=== PATIENT | male | born 1945 | race Caucasian/White ===

== ENCOUNTER 2017-08-12 15:59 | Inpatient (IN) ==
[2017-08-12] MEDS ORDERED: NS 1,000 ML IV ONE ×3 (16:10→17:51)
[2017-08-12 17:18] LABS: BASO% 0.1 % (0.0-0.8); EOS# 0.02 X1000 (0.0-0.7); EOS% 0.1 % (0.0-10.0); HEMATOCRIT 40.3 % (42.0-52.0); HEMOGLOBIN 13.7 g/dL (14.0-18.0); IMM GRAN% 0.6 % (0.0-0.5); LYMPH% 5.6 % (20.5-51.1); MANUAL DIFF NEEDED? NO; MCV 82.2 FL (81-99); MONO# 1.07 X1000 (0.11-0.59); MONO% 6.7 % (1.7-9.3); MPV 11.1 FL (7.4-10.4); NEUT% 86.9 % (42.2-75.2); PLT 239 X1000 (130-400)
--- NOTE | 2017-08-12 17:18 | Diag Imaging Result Doc PS360 ---
EXAM: CHEST-PORTABLE HISTORY: fever, poss sepsis TECHNIQUE: Portable upright COMPARISON: None. FINDINGS: Sternal wires are present. The lungs are well expanded. The heart is not enlarged. The vessels are not distended. No pneumonia. No pleural effusions identified. IMPRESSION: Negative chest Electronically signed by Yan Moreno 08/12/2017 5:16 PM
[2017-08-12] MEDS ORDERED: ZOSYN 3.375 GM in NS 50 ML IV ONE (17:19)
[2017-08-12] MEDS ORDERED: VANCOMYCIN 1 GM/NS 1 GM/250 ML IVPB IV ONE ×2 (17:19→21:00)
[2017-08-12] MEDS ORDERED: DILAUDID IV ONE (17:21)
[2017-08-12] MEDS ORDERED: ZOFRAN IV ONE (17:21)
[2017-08-12 17:22] LABS: INR 1.34; PROTIME 14.3 Seconds (9.2-11.7); PTT 28.6 Seconds (22.0-36.0)
--- NOTE | 2017-08-12 17:33 | PROVIDER DOCUMENTATION ---
This chart was entered by Tam Cleveland Scribe, acting as scribe for Prudencio Lombardi MD. HPI-Fever - General Chief Complaint: Possible Sepsis-D Stated Complaint: POSSIBLE SEPSIS Time Seen by Provider: 08/12/17 15:59 Source: patient Allergies/Adverse Reactions: Patient Allergies Allergy/AdvReac Type Severity Reaction Status Date / Time No Known Allergies Allergy Verified 08/12/17 16:50 - History of Present Illness-Fever Nature of Presenting Problem: patient is a 72 y/o M that presents from home via EMS for possible sepsis. patient has a Decub ulcer to posterior side. He also has lemus cath. he reports a few days of poor appetite, weakness, and body aches. denies n/v/d, chest pain , or cough. Fever Severity/Quality: reports: low grade Onset/Duration: reports: unsure Timing: reports: still present, constant Severity: reports: moderate, severe Context: reports: indwelling lemus, decubitus ulcers Cognitive Baseline: alert, oriented x3 Modifying Factors: improves with: nothing Associated Symptoms: reports: fatigue, loss of appetite, malaise, muscle aches, weakness. denies: chest pain, cough, diarrhea, fever/chills, genitourinary problems, nausea, shortness of breath, vomiting Similar Symptoms Previously?: No Recently seen or treated by another doctor?: No - Glascow Coma Score Best Eye Response (Alma): (4) open spontaneously Best Verbal Response ([place]ma): (5) oriented Best Motor Response ([place]): (6) obeys commands Wayne Total: 15 Review of Systems - Adult - REVIEW OF SYSTEMS - ADULT Constitutional: reports: fever, fatique. denies: chills Eyes: reports: no symptoms reported Ears, Nose, Mouth & Throat: denies: ear discharge, ear pain, sinus problem, throat pain, throat swelling Cardiovascular: denies: chest pain, palpitations, syncope Respiratory: denies: cough, shortness of breath, wheezing Gastrointestinal: reports: poor appetite. denies: abdominal pain, diarrhea, nausea, vomiting Genitourinary: reports: no symptoms reported Musculoskeletal: reports: muscle aches, muscle weakness Integumentary: reports: skin sores/ulcer. 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) - PRIOR SURGERIES/PROCEDURES Surgical/Procedure History: reports: CABG, back/neck - IMMUNIZATION STATUS Childhood Immunizations: See Nurse Assessment Flu Vaccine: See Nurse Assessment - FAMILY HISTORY Family History: reviewed, not pertinent - SOCIAL HISTORY Smoking: quit greater than 1 year, cigarettes Alcohol Use Frequency: occasionally Living Situation: family Physical Exam-General - PHYSICAL EXAM-ADULT Initial Vital Signs Reviewed: Yes - CONSTITUTIONAL General Appearance: alert, mild distress - EYES Eyes: PERRL/EOMI, pink conjunctivae - HEAD, EARS, NOSE, MOUTH & THROAT HENMT: normocephalic/atraumatic, normal ENT inspection, other (dry oral mucosa) - NECK Neck: full range of motion, normal inspection. negative: lymphadenopathy - RESPIRATORY Respiratory: lungs clear, normal breath sounds, no respiratory distress, no accessory muscle use - CARDIOVASCULAR Cardiovascular: regular rate, rhythm, no edema, no murmur - GASTROINTESTINAL (ABDOMEN) Abdominal Exam: normal bowel sounds, non tender, soft, no organomegaly, no pulsatile mass - MUSCULOSKELETAL Extremity: no pedal edema, normal capillary refill - SKIN Integumentary: decubitus (stage iv to bone with signs of infection and foul smell), pallor - PSYCHIATRIC Psych/Mental Status: normal mood/affect, normal thought content, normal thought process, oriented x 3 Progress - PLAN OF CARE/RESULTS Progress/Plan/Lab Results: Vital Signs - 8 hr 08/12/17 16:38 Temperature 103.1 F H Pulse Rate 82 Respiratory Rate 31 H Blood Pressure 97/41 O2 Sat by Pulse Oximetry 93 L Laboratory Results - last 24 hr 08/12/17 08/12/17 08/12/17 16:58 16:58 16:58 WBC 16.05 H RBC 4.90 Hgb 13.7 L Hct 40.3 L MCV 82.2 MCH 28.0 MCHC 34.0 RDW Std Deviation 13.9 Plt Count 239 MPV 11.1 H Immature Gran % (Auto) 0.6 H Neut % (Auto) 86.9 H Lymph % (Auto) 5.6 L [place] % (Auto) 6.7 Eos % (Auto) 0.1 Baso % (Auto) 0.1 Immature Gran # (Auto) 0.10 H Neut # (Auto) 13.94 H Lymph # (Auto) 0.90 L [place] # (Auto) 1.07 H Eos # (Auto) 0.02 Baso # (Auto) 0.02 PT 14.3 H INR 1.34 PTT (Actin FS) 28.6 Estimated GFR/1.73 m2 > 60 Troponin T 08/12/17 16:58 WBC RBC Hgb Hct MCV MCH MCHC RDW Std Deviation Plt Count MPV Immature Gran % (Auto) Neut % (Auto) Lymph % (Auto) [place] % (Auto) Eos % (Auto) Baso % (Auto) Immature Gran # (Auto) Neut # (Auto) Lymph # (Auto) [place] # (Auto) Eos # (Auto) Baso # (Auto) PT INR PTT (Actin FS) Estimated GFR/1.73 m2 Troponin T 0.051 Orders Category Date Time Status Cardiac Monitoring DIRECTED Care 08/12/17 16:16 Active IV Insertion ORDERED Care 08/12/17 16:16 Completed Notify MD of + Sepsis Screen NOW Care 08/12/17 16:16 Active CHEST-PORTABLE [RAD] Stat Exams 08/12/17 16:16 Completed BLOOD CULTURE [BLDCUL] Stat Lab 08/12/17 16:16 Uncollected CBC WITH DIFF [HEME] Stat Lab 08/12/17 16:58 Completed CK PROFILE [SP CHEM] Stat Lab 08/12/17 16:58 Results COMPREHENSIVE METABOLIC PANEL [CHEM] Stat Lab 08/12/17 16:58 Results LACTATE, PLASMA [CHEM] Stat Lab 08/12/17 16:16 Uncollected PROTIME WITH INR [COAG] Stat Lab 08/12/17 16:58 Completed PTT [COAG] Stat Lab 08/12/17 16:58 Completed TROPONIN T Stat Lab 08/12/17 16:58 Completed URINALYSIS W/POSS RFLX CULT-1 [URINALYSIS] Stat Lab 08/12/17 16:16 Uncollected 0.9% Sodium Chloride Inj [Ns] 1,000 ml Med 08/12/17 16:10 Discontinued IV 999 mls/hr Hydromorphone [Dilaudid] Med 08/12/17 17:21 Discontinued 1 mg IV NOW ONE Ondansetron [Zofran] Med 08/12/17 17:21 Discontinued 4 mg IV NOW ONE Piperacillin/Tazobactam [Zosyn] 3.375 gm Med 08/12/17 17:19 Active 0.9% Sodium Chloride Inj [Ns] 50 ml IV NOW Vancomycin 1 gm/Ns Med 08/12/17 17:19 Active 1 gm in 250 ml IV NOW Oxygen Device Stat Oth 08/12/17 16:16 Active Result Diagrams: 08/12/17 16:58 08/12/17 16:58 - CONSULTS/PCP/HOSPITALIST Notification #1 *Consult/PCP/Hospitalist*: Minesh with hospitalist Time Discussed: 17:31 Reason/Comments: accepted Consult Disposition: Admit #2 Consult: Dr.T Bowie Time Discussed: 17:26 Consult Disposition: Will see in ED - CHANGE OF SHIFT REPORT (ED Provider) Time of Transfer: 18:00 Departure - Departure Date of Disposition Decision: 08/12/17 Time of Disposition Decision: 17:32 DIAGNOSIS: Decubitus ulcer, stage 4 with infection, Sepsis, Hypotension, Fever Disposition: ADMITTED INPATIENT 09 Certified Medical Emergency: Emergent Condition: Stable Referrals and Follow-Ups: None,PCP [Clinical Support] - - Critical Care Note This patient required my direct & personal management of CC.: Yes Total Time (mins): 45 Critical Care Statement: This patient required my direct personal management to treat or rule out processes, the absence of which, could potentiallly result in sudden, clinically significant life or limb threatening deterioration. Attestation - Physician/ DAYANARA Attestation The physician spent face to face time with patient:: Yes Advanced Practice Provider documentation review:: Supervising physician onsite and consulted in the evaluation and care of this patient. The physician did have a face to face encounter with the patient. This chart was documented by the indicated scribe, (Tam Cleveland, [place]) and accurately reflects the services I performed and decisions made by me, Prudencio Lombardi MD, as attested by the provider's signature.
[2017-08-12 17:38] LABS: AGAP 18; ALBUMIN 2.9 g/dL (3.5-5.0); ALKALINE PHOSPHATASE 81 U/L (32-122); BUN 47 mg/dL (8-22); CALCIUM 8.4 mg/dL (8.8-10.2); CHLORIDE 87 mmol/L (98-107); CK PROFILE 63 U/L (24-204); COSMO 272; GOT 17 U/L (10-34); GPT 17 U/L (10-44); POTASSIUM 2.8 mmol/L (3.5-5.1); SODIUM 130 mmol/L (136-145); TCO2 25 mmol/L (25-35); TOTAL BILIRUBIN 2.31 mg/dL (0.20-1.00); TOTAL PROTEIN 6.3 g/dL (6.3-8.3)
[2017-08-12] MEDS ORDERED: ZOFRAN IV PRN (18:53)
[2017-08-12] MEDS ORDERED: MAGNESIUM SULFATE 2 GM/S.W.I. 2 GM/50 ML IVPB IV ONE (18:58)
[2017-08-12] MEDS ORDERED: LOVENOX SUBQ SCH (19:00)
[2017-08-12] MEDS ORDERED: DILAUDID ONE (19:26)
[2017-08-12] MEDS ORDERED: VANCOMYCIN IV PER PHARMACY MISC SCH (19:34)
--- NOTE | 2017-08-12 19:53 | HISTORY AND PHYSICAL ---
PRIMARY CARE PHYSICIAN: Dr. Kesha Romero. PRESENTING COMPLAINT: Generalized weakness and wound infection. HISTORY OF PRESENTING COMPLAINT: Mr. 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 The patient has been progressively getting weaker and is now bed bound since April 2017. The patient has home health agency that checks on him. According to the patient, he has been progressively getting weaker, no energy, and no appetite for the past 1 week. Home health went to check on the wound this morning and because of how it looked, they called Dr. Romero who recommended the patient to come to the emergency room for evaluation. Upon presentation, patient was evaluated and was found to have a temperature of 100.3 degrees, blood pressure was low 97/41. Lab work was done and WBC was 16.09. We were asked to review the patient for admission for medical care. PAST MEDICAL HISTORY: 1. Coronary artery disease status post CABG. 2. 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 3. Cervical spine stenosis with possible myelopathy. PAST SURGICAL HISTORY: 1. CABG. 2. Cervical spine surgeries. SOCIAL HISTORY: Patient lives with the and the children. Denies any smoking or alcohol use. FAMILY HISTORY: Positive for hypertension and diabetes. HOME MEDICATION: Unattainable now. He will ask the to bring it from home. REVIEW OF SYSTEMS: 14 point review of systems conducted with the patient and unremarkable except what we have in the HPI. Specifically, patient denies any chest pain. No coughing. No abdominal pain. No urine symptoms. The patient has an indwelling Grayson catheter which gets changed every so often by home health agency. PHYSICAL EXAMINATION: VITAL SIGNS: Blood pressure is 97/41, pulse of 82, respiration is 31, temperature is 100.1 degrees. GENERAL: Mr. Thao is a 72-year-old male. He is in bed in no remarkable distress. HEENT: Mucosa is dry, anicteric and acyanotic. BMI is 25.1. The patient looks generally wasted. Head is normocephalic and atraumatic. CHEST: Air entry is bilaterally reduced. There are no crepitations, no rhonchi and there is no accessory muscle use. NECK: Supple. There is no JVD or carotid bruit. CARDIOVASCULAR: Regular rate and rhythm. There are no murmurs, no rubs, no gallops. ABDOMEN: Soft, is nontender. There is no hepatosplenomegaly. Bowel sounds are present. The patient has an indwelling Grayson catheter. : On the sacral region there is about a 4 x 5 cm sacral ulcer which has necrotic tissue over it making it unable to know what is the depth of the ulcer. It has some foul smell. CHANGE MANAGEMENT COORDINATOR: Patient is awake, is alert and is very conversational. He is oriented x 4. Cortical functions seem to be intact. Sensation to pinprick is reduced in all extremities up to the neck. Power is 0/5 in the lower extremities. It is about 0/5 on the right upper extremity and maybe about 1 to 2/5 on the right upper extremity. Patient has remarkable muscular atrophy in all extremities. I did not appreciate any exaggerated reflexes. DIAGNOSTIC DATA: Chest x-ray shows negative. LABORATORY DATA: WBC is 16.05, hemoglobin is 13.7, platelet count of 239,000. Chemistry was reviewed: Sodium is 130, potassium is 2.9, chloride is 87, bicarb is 25, BUN is 47. ASSESSMENT: Mr. Thao is a 72-year-old male who was recently diagnosed with Guillain [place] and also spinal stenosis with myelopathy, who progressively has become bed bound. Came in because of generalized weakness and found to be septic. 1. Sepsis likely secondary to skin and soft tissue infection. 2. Infected decubitus ulcer. 3. Unstageable decubitus ulcer. 4. Generalized weakness and deconditioning. 5. 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 6. Cervical stenosis with myelopathy status post cervical surgery. 7. Electrolyte abnormality including hypokalemia and hyponatremia. I suspect this is all related to severe dehydration. PLAN: 1. We are going to admit the patient to medical floor. He seems to be now stable in terms of the vitals. 2. We will hydrate him very adequately. Start him on normal saline at a rate of 125 mL/h. 3. Continue with the IV antibiotics including Zosyn and vancomycin. 4. We will consult Dr. Bowie who is the surgeon extrusion supervisor today for the wound evaluation and possible debridement. 5. Will replace all the electrolyte abnormality and recheck his lab work for tomorrow morning. cc: Kartik James MD
[2017-08-12 19:55] LABS: URINE SOURCE CATH
[2017-08-12 20:03] LABS: BILIRUBIN URINE SMALL (NEGATIVE); BLOOD URINE NEGATIVE (NEGATIVE); COLOR YELLOW; GLUCOSE URINE NEGATIVE (NEGATIVE); LEUKOCYTES URINE LARGE (NEGATIVE); NITRITE URINE NEGATIVE (NEGATIVE); PH URINE 5.5; PROTEIN URINE 50 mg/dL (NEGATIVE); SP GRAVITY URINE 1.019; TURBIDITY URINE HAZY (CLEAR); URINE MICRO REVIEW NEEDED? YES; UROBILINOGEN URINE 6 mg/dL (NORMAL)
[2017-08-12 20:05] LABS: UR EPITHELIAL CELLS <10 /HPF (<10); URINE BACTERIA 2+ /HPF; URINE CULTURE NEEDED? YES; URINE RBC <10 /HPF (<10); URINE WBC TNTC /HPF (<10)
[2017-08-12 20:16] LABS: URINE CASTS GRANULAR PRESENT; URINE CRYSTALS NONE SEEN; URINE SMALL ROUND CELLS NONE SEEN
[2017-08-12] MEDS: LEVOPHED 8 MG in D5 1/2 NS 250 ML IV SCH ×3 (21:27→22:01)
--- NOTE | 2017-08-12 21:59 | CONSULTATION ---
DATE OF CONSULTATION: 08/12/2017 HISTORY OF PRESENT ILLNESS: This is a 72-year-old male, a patient of Dr. 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 He has also had recent cervical spine operations and lumbar spine operations recently. He presents with general malaise, loss of appetite, with limited p.o. intake the last several days, and fevers. In the emergency department, he was found to be febrile, and septic workup was initiated. Blood pressures were mildly low, with initially 97/41 blood pressure. He was started on broad-spectrum antibiotics PAST MEDICAL HISTORY: 1. Guillain-Apison syndrome. 2. Diffuse muscle weakness and immobility. 3. Chronic indwelling Grayson catheter. 4. Hypertension. 5. Degenerative spine disease. 6. Hyperlipidemia. PAST SURGICAL HISTORY: He has had coronary bypass, cervical spine, and lumbar spine operations. SOCIAL HISTORY: No tobacco, alcohol, or drugs. Currently, he has a caregiver and family here with him. FAMILY HISTORY: Reviewed and noncontributory. REVIEW OF SYSTEMS: Ten point negative, unless mentioned in HPI. PHYSICAL EXAMINATION: General: An elderly chronically ill-appearing gentleman. Vital Signs: Temperature 103.1, pulse in the 80s, blood pressure 90/46, oxygen saturation 96% on room air. He is 180 pounds, 5 feet 11 inches. Cardiovascular: Normal rate, regular rhythm. Pulmonary: No increased work of breathing. No productive cough. Abdomen: Soft, nontender, nondistended. Integument: Warm, dry. There is an unstageable decubitus ulcer that is approximately 6 cm in largest dimension. It had some necrotic material in the bed, but no pus, and no cellulitis. It is overlying his sacrum. Lower Extremities: There is some edema, but otherwise well-perfused. Neurological: Paraplegic. Decreased motor and sensation from the waist down. He does seem to move his upper extremities well. Psychiatric: He has got appropriate affect and insight into his current disease process. Lymphatics: I do not feel any cervical lymphadenopathy. LABORATORY STUDIES: White count 16, hematocrit 40, platelets 239,000. INR is 1.34. Creatinine is 1.1. Glucose 84. Bilirubin is mildly elevated at 2.31. AST, ALT, and alkaline phosphatase are normal. Troponins are elevated at 0.051. Albumin is 2.9. ASSESSMENT AND PLAN: A 72-year-old male with Guillain-Apison, multiple medical issues, who presents with general malaise, loss of appetite, and fevers. He has been initiated on broad- spectrum antibiotics. He also has a decubitus wound. I do not see any signs of infection here. It has been treated by home health with wound care at home. He does need debridement to facilitate healing, but I do not think this is the source of his sepsis. I worry with his indwelling Grayson catheter this is most likely urosepsis in etiology, and I have recommended workup for this. His urinalysis is pending. He is a very chronically ill gentleman. He is being admitted to the hospitalist service, and I have recommend broad-spectrum antibiotics. As he is resuscitated, I suspect that he is very dehydrated as well, given the lack of oral intake the last several days. We will plan for surgical debridement of this to facilitate wound healing, not for control of sepsis, in the next 24 to 48 hours. I discussed this plan in detail with the patient. He understands. He is relatively insensate, but he has a lot musculoskeletal pain with movement. I think in the OR, with some light sedation, this would be the most appropriately managed. In the meantime, we will continue enzymatic debridement, local wound dressing changes. We will engage Idalmis Sanderson. I have recommended Santyl ointment, both pre- and postoperatively. He will most likely benefit from wound VAC therapy going forward. He is obese, but he is quite malnourished, likely chronically. His albumin is low. Will defer medical management to the hospitalist service. He is on appropriate antibiotics. Will follow along for his wound care recommendations. cc: Mary Bowie MD
[2017-08-12] MEDS: NS 1,000 ML IV SCH (22:00)
[2017-08-13] MEDS: POTASSIUM CHLORIDE 20 MEQ/SWI 20 MEQ/100 ML IVPB IV SCH ×2 (01:36→03:44)
[2017-08-13] MEDS ORDERED: DILAUDID IV ONE (04:14)
[2017-08-13] MEDS ORDERED: DILAUDID ONE ×2 (04:21→05:46)
[2017-08-13] MEDS: LEVOPHED 8 MG in D5 1/2 NS 250 ML IV SCH ×8 (04:47→21:48)
[2017-08-13] MEDS: ZOSYN 3.375 GM in NS 50 ML IV SCH ×6 (06:15→23:24)
[2017-08-13 07:07] LABS: BASO% 0.1 % (0.0-0.8); EOS# 0.01 X1000 (0.0-0.7); HEMATOCRIT 37.5 % (42.0-52.0); HEMOGLOBIN 12.5 g/dL (14.0-18.0); IMM GRAN# 0.11 X1000 (0.0-0.04); IMM GRAN% 0.5 % (0.0-0.5); LYMPH# 1.36 X1000 (1.2-3.4); MANUAL DIFF NEEDED? YES; MCHC 33.3 g/dL (33-37); MCV 83.9 FL (81-99); MONO# 1.38 X1000 (0.11-0.59); MONO% 6.1 % (1.7-9.3); MPV 10.8 FL (7.4-10.4); NEUT% 87.3 % (42.2-75.2); PLT 299 X1000 (130-400); RBC 4.47 XMIL (4.7-6.1)
[2017-08-13 07:09] LABS: LYMPHS 2 % (21-51); MONO 4 % (1-9)
[2017-08-13] MEDS: NS 1,000 ML IV SCH ×3 (07:10→23:27)
[2017-08-13 07:29] LABS: AGAP 18; ALBUMIN 2.6 g/dL (3.5-5.0); ALKALINE PHOSPHATASE 87 U/L (32-122); BUN 41 mg/dL (8-22); CALCIUM 8.3 mg/dL (8.8-10.2); CHLORIDE 92 mmol/L (98-107); COSMO 277; GOT 19 U/L (10-34); GPT 16 U/L (10-44); MAGNESIUM 1.9 mg/dL (1.5-2.7); SODIUM 133 mmol/L (136-145); TCO2 23 mmol/L (25-35); TOTAL BILIRUBIN 1.84 mg/dL (0.20-1.00); TOTAL PROTEIN 5.8 g/dL (6.3-8.3)
--- NOTE | 2017-08-13 09:18 | SEPSIS: TISSUE PERFUSION ASSMT ---
This chart was entered by Tam Cleveland Scribe, acting as scribe for Prudencio Lombardi MD. Sepsis: Tissue Perfusion Assmt - Physical Exam Assessment Date: 08/12/17 Time Assessment Initialized: 18:00 Vital Signs: Last Vital Signs Temp 98.5 F 08/13/17 08:00 Pulse 87 08/13/17 08:37 Resp 10 L 08/13/17 08:37 BP 133/63 08/13/17 08:37 Pulse Ox 95 08/13/17 08:37 Height 5 ft 11 in Weight 180 lb Lung Sounds:: lungs clear Heart Sounds:: Regular Capillary Refill Time: Less Than 2 Seconds Peripheral Pulse Evaluation:: radial (R): 4+, radial (L): 4+ Skin Exam:: pink, turgor good. negative: pale, pallor, jaundice - Impression Impression:: Tissue Perfusion Adequate - Plan Plan:: See Orders This chart was documented by the indicated scribe, (Tam Cleveland Scribe) and accurately reflects the services I performed and decisions made by , Prudencio Lombardi MD, as attested by the provider's signature.
[2017-08-13] MEDS: LOVENOX SUBQ SCH (09:55)
--- NOTE | 2017-08-13 10:06 | PROGRESS NOTE ---
DATE: 08/13/2017 SUBJECTIVE: Today, Mr. Thao refers to be doing a little better. He continues to have generalized pains. I understand last night his blood pressures were very low, and they needed to start him on pressors, and he is now in the ICU. OBJECTIVE: Vital Signs: Blood pressure is 133/63, pulse of 87, respirations 20, temperature is 98.5 degrees. The patient had a temperature of 103.1 degrees on presentation. On general exam, Mr. Thao is a 72-year-old male. He is in bed. HEENT: Mucosa is pink and dry. Anicteric. Acyanotic. Neck is supple. Chest is clear. Cardiovascular: Regular rate and rhythm. There is no murmurs, no rubs, no gallops. Abdomen is soft, distended, but nontender. Bowel sounds are present. Extremities: No pedal edema. FILING MACHINE OPERATOR: The patient is awake and alert. He continues to have generalized weakness in both extremities, minimal function on the right upper extremity. Patient has a Grayson catheter in place. On the bottom, there is about a 4 x 5 cm ulcer which continues to have some necrotic tissue over it. It is draining some purulent material, and it has a very foul smell. There are erythematous changes around the ulcer. LABORATORY DATA: WBC is 22.79, hemoglobin is 12.5, platelet count of 299,000. There is 94% of neutrophils. Sodium is 133, potassium is 3.0, chloride 92, bicarb is 23, BUN is 41. Creatinine is 0.1. TSH is 0.48. ASSESSMENT: 1. Severe sepsis with hypotension early on today. Patient was started on Levophed. We think the source of the infection is from the decubitus ulcer. The urine also is slightly dirty and urinary tract infection could not be excluded. Patient is, however, on antibiotics. Infected decubitus ulcer with surrounding cellulitis. We will continue with the current coverage. The Gram stain from the wound is showing some gram-negative cocci and gram-negative rods. There was no yeast identified. The patient has been evaluated by both Wound Care Surgery, and I think there is a plan. For Incision and Drainage in the OR. 2. Generalized weakness and deconditioning. 3. Recently diagnosed Guillain-[place] disease, which has lasted more than 6 weeks. I suspect the patient now has chronic inflammatory demyelinating polyneuropathy. 4. Cervical stenosis with myelopathy status post cervical surgery. 5. Clinical dehydration. Will continue with the IV fluids. In general, I think Mr. Thao is clinically stable, however, continues to be extremely sick. We will continue with the current antibiotics and will be pending surgery to evaluate the patient today for the I and D. cc: Kartik James MD
[2017-08-13] MEDS ORDERED: FENTANYL ONE (11:18)
[2017-08-13] MEDS ORDERED: KETAMINE ONE (11:18)
[2017-08-13] MEDS ORDERED: DIPRIVAN 1% ONE (11:18)
[2017-08-13] MEDS ORDERED: EPHEDRINE ONE (11:59)
[2017-08-13] MEDS: SANTYL OINT TOP SCH (13:16)
[2017-08-13] MEDS ORDERED: NS 1,000 ML IV ONE (14:09)
[2017-08-13] MEDS ORDERED: NORCO-7.5 PO ONE (17:47)
--- NOTE | 2017-08-13 20:23 | OPERATIVE NOTE ---
PROCEDURE DATE: 08/13/2017 PREOPERATIVE DIAGNOSIS: Sacral decubitus wound. POSTOPERATIVE DIAGNOSIS: Sacral decubitus wound. PROCEDURE PERFORMED: Excisional debridement of sacral and left gluteal wound 12 x 9 cm x 11 cm deep down to the level of bone and up to the perirectal fat. ESTIMATED BLOOD LOSS: 50 mL. SPECIMENS: Necrotic wound tissue for pathology and culture. ANESTHESIA: General. INDICATION: This is a 72-year-old bedridden gentleman related to Guillain-[place] who presents with evidence of sepsis, urinary tract infection, decubitus wound. Debridement was indicated. OPERATIVE FINDING: There was a central ulcerated necrotic decubitus wound that tracked and tunneled to the left gluteal region. There was pus in the perirectal location deep within the gluteus muscle. OPERATIVE NOTE: Risks, benefits, alternatives discussed with patient. He consented to the procedure. We did discuss with the family as well. He was taken to the operating room, placed initially supine and general anesthesia induced. He tolerated this well and then was placed in right lateral decubitus position. His sacrum and bilateral gluteal muscles were prepped with Betadine and draped in usual fashion. After a time-out was performed, using the 10 blade scalpel, we excised this wound back to healthy bleeding tissue. It did track in the left gluteus muscle down to the distal 12 cm of his rectum and into his left gluteus muscle, almost into the ischium. There was exposed periosteum of the sacrum and coccyx in the bed of the wound. There was abscess related to this deep next to the rectum that we drained in its entirety. We excised all the necrotic tissue back to healthy bleeding tissue, irrigated the wound and confirmed hemostasis. There is no evidence of undrained collection. There was a healthy margin of skin around the anus that should allow for ongoing wound dressing changes. We packed the wound with Vashe, Kerlix, ABD and tape. He tolerated procedure well, was awoken and transferred to recovery and then back to the ICU. I spoke with the family. We will need to monitor him for ongoing debridements in the future, and if this stays clean, we will plan to place a wound VAC therapy in the future. cc: Mary Bowie MD
[2017-08-13] MEDS: NORCO-10 PO PRN (21:47)
--- NOTE | 2017-08-13 22:47 | PROGRESS NOTE ---
DATE: 08/13/2017 SUBJECTIVE: He is okay. He has been intermittently requiring Levophed overnight. Urinalysis came back positive. He continues on broad-spectrum antibiotics and fluid resuscitation. Transferred to ICU. OBJECTIVE: Vital signs: No fevers, but pulses have been in the 80s. Blood pressure this morning was 130/72. Levophed was on hold, but he had been on it previously for hypertension overnight. LABORATORIES: White count is up to 22, hematocrit 37. Creatinine is 0.7, sodium is 133, glucose is 100. ASSESSMENT/PLAN: A 72-year-old male with a decubitus wound and a urinary tract infection. I suspect his sepsis was most likely related to his urinary tract infection, but the wound could be contributing, and I think debridement is indicated. Discussed this with the patient. We will go the operating room today for excisional debridement of his wound and make plans for further wound care going forward. cc: Mary Bowie MD
[2017-08-14] MEDS: NORCO-10 PO PRN ×3 (01:41→20:36)
[2017-08-14] MEDS: LEVOPHED 8 MG in D5 1/2 NS 250 ML IV SCH ×3 (02:49→16:04)
[2017-08-14] MEDS ORDERED: VANCOMYCIN 1,800 MG in NS 500 ML IV SCH (03:00)
--- NOTE | 2017-08-14 05:45 | EKG Report ---
Test Performed on : 08/13/2017 1:26:29 PM Test Reason : No Order in [facility] ([employer]) Blood Pressure : / mmHG Vent. Rate : 120 BPM Atrial Rate : 120 BPM P-R Int : 164 ms QRS Dur : 156 ms QT Int : 454 ms P-R-T Axes : 049 075 044 degrees QTc Int : 641 ms Sinus tachycardia. with frequent and consecutive premature ventricular complexes. Nonspecific intraventricular block Nonspecific ST and T wave abnormality Abnormal ECG No previous ECGs available Confirmed by Emiliano Garcia MD ([id number]) on 08/14/2017 1:27:25 PM
[2017-08-14 06:07] LABS: BASO% 0.2 % (0.0-0.8); EOS# 0.06 X1000 (0.0-0.7); EOS% 0.2 % (0.0-10.0); HEMATOCRIT 39.5 % (42.0-52.0); HEMOGLOBIN 12.8 g/dL (14.0-18.0); IMM GRAN# 0.13 X1000 (0.0-0.04); IMM GRAN% 0.5 % (0.0-0.5); LYMPH# 2.67 X1000 (1.2-3.4); LYMPH% 9.3 % (20.5-51.1); MANUAL DIFF NEEDED? YES; MCH 27.4 PG (27-31); MCHC 32.4 g/dL (33-37); MCV 84.4 FL (81-99); MONO# 2.17 X1000 (0.11-0.59); MONO% 7.6 % (1.7-9.3); MPV 10.8 FL (7.4-10.4); NEUT% 82.2 % (42.2-75.2); PLT 367 X1000 (130-400); RBC 4.68 XMIL (4.7-6.1)
[2017-08-14] MEDS: NS 1,000 ML IV SCH ×3 (06:11→19:39)
[2017-08-14] MEDS: ZOSYN 3.375 GM in NS 50 ML IV SCH ×3 (06:12→17:34)
[2017-08-14 06:33] LABS: AGAP 20; BUN 31 mg/dL (8-22); CALCIUM 7.6 mg/dL (8.8-10.2); CHLORIDE 98 mmol/L (98-107); COSMO 284; MAGNESIUM 1.8 mg/dL (1.5-2.7); POTASSIUM 2.7 mmol/L (3.5-5.1); SODIUM 138 mmol/L (136-145); TCO2 20 mmol/L (25-35)
[2017-08-14 06:55] LABS: BANDS 16 % (0-1); LYMPHS 8 % (21-51); MONO 4 % (1-9)
[2017-08-14] MEDS: POTASSIUM CHLORIDE 20 MEQ/SWI 20 MEQ/100 ML IVPB IV SCH ×2 (08:05→09:55)
[2017-08-14] MEDS: KLOR-CON PO ONE ×2 (08:05→08:55)
[2017-08-14] MEDS ORDERED: LEVAQUIN 500 MG/D5W 500 MG/100 ML IVPB IV SCH (08:30)
[2017-08-14] MEDS ORDERED: POTASSIUM CHLORIDE 20% LIQUID PO ONE (08:32)
[2017-08-14] MEDS ORDERED: POTASSIUM CHLORIDE 20 MEQ/SWI 20 MEQ/100 ML IVPB IV SCH (09:00)
[2017-08-14] MEDS ORDERED: MERREM 1 GM in NS 50 ML IV SCH (09:00)
[2017-08-14] MEDS: LOVENOX SUBQ SCH (09:01)
[2017-08-14] MEDS: SANTYL OINT TOP SCH (09:25)
[2017-08-14] MEDS ORDERED: VANCOMYCIN IV PER PHARMACY MISC SCH ×2 (12:30)
--- NOTE | 2017-08-14 14:42 | PROGRESS NOTE ---
DATE: 08/14/2017 SUBJECTIVE: He is alert. Seems to feel better this morning. OBJECTIVE: Vital signs: No fevers overnight. Pulse has been in the 80s, blood pressure 98/62, but he is on quite a bit of Levophed, 99% on 4 L. General: He is alert. skin: His perineal wound is clean. There is some murky drainage from deep within the bed, but no progressive of the necrosis, and these pockets seem to be adequately drained. DIAGNOSTICS: The white count is up to 28 this morning, hematocrit 29. Creatinine 0.7, glucose 131. ASSESSMENT/PLAN: This is a 72-year-old male with a sacral and gluteal decubitus wound with some abscess component here. He has also a urinary tract infection. I would continue him on broad-spectrum antibiotics with Zosyn and vancomycin. Appears that he had been reduced down to Levaquin alone, but I think, based off his culture data, he is growing out gram- positive cocci out of his wound and Escherichia coli, and I suspect the wound probably has multi organisms, so I am going to add him back to Zosyn and vancomycin. cc: Mary Bowie MD MTDD
--- NOTE | 2017-08-14 15:00 | PROGRESS NOTE ---
DATE: 08/14/2017 SUBJECTIVE: Today Mr. Thao refers to be doing relatively fine. No acute complaints. OBJECTIVE: Vital signs: Blood pressure is 112/83, pulse of 77, respirations 14 , temperature 96.7 degrees. Patient continues to be on the Levophed drip. General: Mr. Thao is a 72-year-old male. He is in bed, not in any remarkable distress. HEENT: Mucosa is still dry. Anicteric. Acyanotic. Neck: Supple. Chest: Air entry is bilaterally reduced. A few bibasilar crepitations. Cardiovascular: Regular rate and rhythm. There are no murmurs, no rubs, and no gallops. Abdomen: Soft, nontender. Bowel sounds are present. No hepatosplenomegaly. Extremities: No pedal edema. BUSINESS TEAM LEADER: Patient is awake, alert, and oriented. Generalized weakness in both extremities. Patient is able to lift up the right upper extremity but none of the of other extremities can be lifted against gravity. : Folic catheter is in place. LABORATORY DATA: WBC is 28.61, hemoglobin is 12.8, platelet count is 367,000, bands of 16. Chemistry is reviewed. Sodium is 138, potassium is 2.7, chloride is 200, phosphorus is 2.4, calcium is 7.6. The patient's vitamin D level has been checked and it is 10.5 which is ridiculously low. ASSESSMENT: 1. Septic shock secondary to skin and soft tissue infection as well as urinary tract infection. White count continues to be climbing up. We did a urine. Both the urine and the wound culture have grown E. coli. I have switched the antibiotics to levofloxacin and I will get ID to see the patient. 2. Infected decubitus ulcer with surrounding cellulitis. Wound culture positive for E. coli. Patient had debridement yesterday. Per the surgical note, it looks like the patient had a very bad tunnel infection down to the gluteus with some abscess pocket which was completely clean. We have the patient on antibiotics at this point. We will wait for ID to see the patient and give us some recommendations with regards to that. 3. Urinary tract infection. Patient has an indwelling Grayson catheter. We will continue with the current antibiotics. Catheter has been changed. 4. Generalized weakness and deconditioning. We will continue with physical therapy. 5. History of Guillain [place]. 6. Cervical stenosis with myelopathy. Patient is status post cervical spine surgery. 7. Clinical dehydration, improving. Will continue with the IV fluids. 8. Vitamin D deficiency. We will continue to replace. 9. Hypokalemia. This will be replaced. We will also check patient's cortisol level to make sure he has not developed any transient adrenal insufficiency from hypotension since he continues to be needing Levophed. cc: Kartik James MD MTDD
[2017-08-14] MEDS: LYRICA PO SCH (21:09)
[2017-08-14] MEDS: FLEXERIL PO PRN (21:10)
[2017-08-15] MEDS: LEVOPHED 8 MG in D5 1/2 NS 250 ML IV SCH ×2 (00:17→12:40)
[2017-08-15] MEDS: NS 1,000 ML IV SCH ×5 (03:37→22:27)
--- NOTE | 2017-08-15 07:21 | Diag Imaging Result Doc PS360 ---
EXAM: CHEST-1 VIEW INDICATION: pneumonia TECHNIQUE: One view COMPARISON: 08/12/2017 FINDINGS: Lung volumes are low. There is increased opacity throughout the left lung likely representing edema +/- pneumonia. There is suggestion of pulmonary venous congestion. Cardiac silhouette is stable. IMPRESSION: Increased opacity throughout the left lung suggesting worsening edema +/- pneumonia. Electronically signed by Timothy Dwyer 08/15/2017 7:18 AM
--- NOTE | 2017-08-15 07:40 | CONSULTATION ---
DATE OF CONSULTATION: 08/14/2017 CONCLUSION: The patient has an Escherichia coli urinary tract infection. He also has an infected sacral decubitus ulcer, which involves the bone. Therefore, by definition, he has sacral osteomyelitis as well as an infected sacral decubitus ulcer. Both the urinary tract infection and the decubitus cultures grew the same thing namely, E coli. RECOMMENDATIONS: I have discontinued all the antibiotics including IV Levaquin and instead, have placed the patient on p.o. Levaquin because by mouth, it gives the same blood level as giving it through the vein. 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 He developed a decubitus ulcer, which was causing him to have a lot of pain. He did not have any dysuria. In any event, it got worse, and he eventually was admitted to the hospital. Dr. Bowie has debrided the sacral decubitus ulcer and it is noted in his operative note, the ulcer extended to the sacral and iliac bones. The patient's laboratory studies show a CBC: The white count is 28,610, hemoglobin 12.8, and platelet count is 367,000. The patient's creatinine is 0.7. GFR is greater than 60. As I mentioned above, both the urine and the wound culture grew E coli. The patient's chest x-ray shows lungs are well expanded and clear. REVIEW OF SYSTEMS: Eyes and ears: He does not have any loss of hearing or vision. Neck: No stiffness. Respiratory: He is not coughing or having dyspnea at this time. Cardiac: No chest pain or palpitations. GI: No nausea or vomiting. The patient does pass bowel movements. Genitourinary: He was not having dysuria. He does have a Grayson catheter in, however. Bones, joints, muscles: The patient had a big decubitus ulcer which extended to the sacrum. Integument: No rashes. Neurologic: The patient is very weak in both his arms and legs. PREVIOUS HOSPITALIZATIONS AND OPERATIONS: He has had 3 myocardial infarctions. He has had coronary artery bypass grafting. He has had surgery on his cervical spine and lumbar spine. MEDICAL DISEASES: Positive for hypertension, myocardial infarction, and Guillain Bosler syndrome. INFECTIOUS DISEASE HISTORY: Negative for pneumonia and UTI. Positive for Guillain Bosler syndrome. FAMILY HISTORY: Positive for hypertension and myocardial infarction. SOCIAL HISTORY: The patient was living in [place]. He moved up to [place]. He stopped smoking cigarettes and drinking alcoholic beverages years ago. He is . Does not have any pets at home. ALLERGIES: He does not have any drug allergies. HOME MEDICATIONS: Hydrocodone, Flexeril, irbesartan, Coreg, vitamins, and Lyrica. PHYSICAL EXAMINATION: Vital Signs: Temperature is 96.9 degrees, pulse 81, respirations 31, blood pressure 91/55. Patient is 5 feet 11 inches tall, weighs 215 pounds. General: This is an ill- appearing, elderly male, who is in no acute distress. Head, eyes, ears, nose, and throat: He can hear my spoken words and see near objects. No drainage is noted from the nose or ears. Neck: No meningismus. Thorax: No increased AP diameter. Lungs: Clear to auscultation. Cardiovascular: Regular heart rate. Abdomen: Soft and not tender. Neurologic: Patient can barely move his arms and legs. He is extremely weak, but he talks well. His voice is strong. Integument: I saw pictures of the sacral decubitus ulcer. Before it was debrided, it had a necrotic tissue as well as a large eschar. There was surrounding the sacral wound a lot of erythema. Thank you for the consult. cc: Ricardo Stein MD
[2017-08-15] MEDS: LYRICA PO SCH ×2 (08:33→20:40)
[2017-08-15] MEDS: LEVAQUIN PO SCH (08:33)
[2017-08-15] MEDS: LOVENOX SUBQ SCH (08:33)
[2017-08-15] MEDS: VITAMIN D PO SCH (08:33)
[2017-08-15] MEDS: VICON-C PO SCH (08:33)
[2017-08-15] MEDS: VITAMIN B-1 PO SCH (08:33)
[2017-08-15] MEDS: SANTYL OINT TOP SCH (08:35)
[2017-08-15 08:46] LABS: BASO% 0.1 % (0.0-0.8); EOS# 0.21 X1000 (0.0-0.7); EOS% 1.2 % (0.0-10.0); HEMATOCRIT 38.9 % (42.0-52.0); HEMOGLOBIN 12.8 g/dL (14.0-18.0); IMM GRAN# 0.06 X1000 (0.0-0.04); IMM GRAN% 0.3 % (0.0-0.5); LYMPH# 1.57 X1000 (1.2-3.4); LYMPH% 8.8 % (20.5-51.1); MANUAL DIFF NEEDED? NO; MCH 27.6 PG (27-31); MCHC 32.9 g/dL (33-37); MCV 83.8 FL (81-99); MONO# 1.42 X1000 (0.11-0.59); MONO% 7.9 % (1.7-9.3); MPV 10.4 FL (7.4-10.4); NEUT% 81.7 % (42.2-75.2); PLT 359 X1000 (130-400); RBC 4.64 XMIL (4.7-6.1)
[2017-08-15] MEDS ORDERED: VANCOMYCIN 1,800 MG in NS 500 ML IV SCH (09:00)
[2017-08-15 09:22] LABS: AGAP 13; BUN 17 mg/dL (8-22); CHLORIDE 103 mmol/L (98-107); COSMO 282; POTASSIUM 2.9 mmol/L (3.5-5.1); SODIUM 138 mmol/L (136-145); TCO2 22 mmol/L (25-35)
[2017-08-15 09:39] LABS: CALCIUM 6.8 mg/dL (8.8-10.2)
[2017-08-15] MEDS ORDERED: NS 250 ML ONE (10:07)
[2017-08-15] MEDS ORDERED: ATIVAN IV ONE (10:11)
[2017-08-15] MEDS ORDERED: ATIVAN ONE (10:15)
[2017-08-15] MEDS ORDERED: KLOR-CON PO ONE (11:13)
[2017-08-15] MEDS ORDERED: MAGNESIUM SULFATE 2 GM/S.W.I. 2 GM/50 ML IVPB IV ONE (11:13)
--- NOTE | 2017-08-15 11:52 | Diag Imaging Result Doc PS360 ---
EXAM: CHEST-PORTABLE HISTORY: picc line placement TECHNIQUE: Portable upright COMPARISON: A film taken earlier at 5:00 AM FINDINGS: A left-sided PICC line has been placed since the prior exam. There are multiple wires overlying the chest. I'm unsure where the distal PICC line is located although may remain in the upper superior vena cava. No other interval change. IMPRESSION: Placement of a left-sided PICC line although unsure as to its exact location. Electronically signed by Yan Moreno 08/15/2017 11:50 AM
--- NOTE | 2017-08-15 12:26 | Diag Imaging Result Doc PS360 ---
EXAM: CHEST-PORTABLE HISTORY: picc placement TECHNIQUE: Portable AP supine COMPARISON: Compared to study performed an hour earlier. FINDINGS: The tip of the left-sided PICC line overlies the distal superior vena cava near the right atrium. There has been no other interval change. IMPRESSION: Left-sided PICC line in good position with the tip overlying the distal superior vena cava. Electronically signed by Yan Moreno 08/15/2017 12:24 PM
[2017-08-15] MEDS: POTASSIUM CHLORIDE 20 MEQ/SWI 20 MEQ/100 ML IVPB IV SCH ×2 (12:47→14:47)
--- NOTE | 2017-08-15 17:08 | PROGRESS NOTE ---
DATE: 08/15/2017 SUBJECTIVE: This morning, Mr. Thao appears to be doing fine. No acute changes overnight. Per the nursing staff, his night was uneventful. OBJECTIVE: Vital signs: Blood pressure is 111/49, pulse of 77, respiration is 21, temperature 97.3 degrees. Patient is saturating 98% on 2 L of oxygen. General: Mr. Thao is a 72-year- old male. He is in bed, not seemingly distressed. HEENT: Mucosa is pink and moist. Anicteric. Acyanotic. Neck: Supple. Chest: Good air entry bilateral. A few bibasilar crepitations. Cardiovascular: Regular rate and rhythm. No murmurs, no rubs. Abdomen: Soft. There is no hepatosplenomegaly. ER NURSE: Patient is slightly drowsy because of medication but he is able to follow some basic commands. He does have been generalized upper extremity weakness. Patient is able to lift up the right upper extremity against gravity. But not able to do so with the lower extremity and with the left. Folic catheter is in place. LABORATORY DATA: WBC is 17.89, hemoglobin is 12.8, platelet count of 359,000. Chemistry is also reviewed. Sodium is 138, potassium is 2.9, chloride is 103. Bicarbonate is 23 and calcium is 6.8. ASSESSMENT: 1. Septic shock secondary to skin and soft tissue infection and urinary tract infection. 2. Escherichia coli decubitus ulcer infection and also Escherichia coli urinary tract infection. 3. Generalized weakness and deconditioning. 4. History of Guillain-[place]. 5. Cervical stenosis with myelopathy status post cervical spine surgery. We will continue with physical rehabilitation. 6. Clinical dehydration. This is improving. We are now going to be cutting back on the fluids to 85 mL/h. 7. Vitamin D deficiency. We will continue to replace this. 8. Hypokalemia. We will replace this with magnesium as well. 9. Left lung opacity, questionable pneumonia. A chest x-ray this morning shows some worsening of infiltrates in the left lung, questionable for possible pneumonia. The patient is on antibiotic at this point, and white cell is actually coming down sop we are just going to keep an eye on this. In general, I think Mr. Thao is relatively stable. He got a PICC line today. Blood cultures have been negative. The patient has been started on p.o. antibiotics by ID. From the report, surgery plans to do another debridement possibly early next week. For now, we will continue with wound care and current antibiotics. The patient is still on pressors but he is needing less. They are titrating it down. Hopefully, by late this afternoon, we should be able to get him off the pressors. cc: Kartik James MD MTDKeven
--- NOTE | 2017-08-15 17:21 | PROGRESS NOTE ---
DATE: 08/15/2017 SUBJECTIVE: Feels better. Still intermittently requiring Levophed. He is thirsty and hungry. OBJECTIVE: No fevers overnight. Pulse is 77, blood pressure 111/49. He is on I think 12 mcg of Levophed. Oxygen saturation is 90% on 2 L. Abdomen: Soft, nontender. Gluteal wound is overall a healthy bed. There is some murky, purulent drainage ongoing, but there is no undrained collections and no worsening of the necrosis. No cellulitis surrounding. DIAGNOSTIC DATA: White count is 17, down from 28. Hematocrit is 38. Creatinine is 0.3. ASSESSMENT AND PLAN: A 72-year-old male admitted with sepsis related to urinary tract infection and infected decubitus wound. We debrided this. Dressing changes are going okay. We will continue at least twice daily if not more frequent dressing changes. We will hold the Santyl ointment today as the wound is continuing to drain quite a bit and will reassess Friday. If the wound is stable, we plan to place a wound VAC. If it needs more debridement, we will do this on Friday, so please make him n.p.o. Friday night in anticipation of him needing this. Dr. Thomas will follow the patient over the weekend. cc: Mary Bowie MD [facility]
[2017-08-15] MEDS: NORCO-10 PO PRN (20:39)
[2017-08-15] MEDS: FLEXERIL PO PRN (20:39)
[2017-08-16 04:55] LABS: MANUAL DIFF NEEDED? NO
[2017-08-16 04:59] LABS: BASO% 0.1 % (0.0-0.8); EOS# 0.15 X1000 (0.0-0.7); EOS% 1.3 % (0.0-10.0); HEMATOCRIT 36.5 % (42.0-52.0); HEMOGLOBIN 11.7 g/dL (14.0-18.0); IMM GRAN# 0.02 X1000 (0.0-0.04); IMM GRAN% 0.2 % (0.0-0.5); LYMPH% 12.9 % (20.5-51.1); MCH 27.3 PG (27-31); MCHC 32.1 g/dL (33-37); MCV 85.1 FL (81-99); MONO# 1.16 X1000 (0.11-0.59); MPV 10.2 FL (7.4-10.4); NEUT% 75.5 % (42.2-75.2); PLT 291 X1000 (130-400); RBC 4.29 XMIL (4.7-6.1)
[2017-08-16 05:49] LABS: AGAP 6; ALKALINE PHOSPHATASE 62 U/L (32-122); BUN 15 mg/dL (8-22); CHLORIDE 103 mmol/L (98-107); COSMO 280; GOT 17 U/L (10-34); GPT 18 U/L (10-44); POTASSIUM 3.7 mmol/L (3.5-5.1); SODIUM 140 mmol/L (136-145); TCO2 31 mmol/L (25-35); TOTAL BILIRUBIN 0.77 mg/dL (0.20-1.00); TOTAL PROTEIN 5.1 g/dL (6.3-8.3)
--- NOTE | 2017-08-16 08:13 | PROGRESS NOTE ---
DATE: 08/15/2017 PRESENT ILLNESS: The patient has an E. coli urinary tract infection and has E. coli sacral osteomyelitis secondary to an infected decubitus ulcer. The patient has a chest x-ray which shows a left-sided infiltrate. This could be due to edema or possibly infection, or possibly a combination. MEDICATIONS: As mentioned above, the patient is taking Levaquin. This is day 1 of treatment with Levaquin. PHYSICAL EXAMINATION: Vital Signs: Temperature is 97.8 degrees, pulse 81, respirations 36, blood pressure 94/61. General: The patient looks chronically ill. Lungs: Clear to auscultation. Cardiovascular: Heart rate is regular. Abdomen: Soft and nontender. LAB AND X-RAY: CBC shows a white count of 17,890, hemoglobin is 12.8, platelet count is 359,000. Creatinine is 0.3. GFR is greater than 60. The patient's urine and wound have grown E. coli. Chest x-ray shows left-sided edema and/or pneumonia. CBC shows a white count of 17,890, hemoglobin 12.8, and platelet count 359,000. ASSESSMENT AND PLAN: Patient has E. coli urinary tract infection, sacral osteomyelitis, and infected sacral decubitus. Finally, the patient may have an E. coli pneumonia as well. The plan is to continue Levaquin. COMORBIDITIES: He has been diagnosed as having Guillain-[place] syndrome which has persisted. Patient is elderly. cc: Ricardo Stein MD
[2017-08-16] MEDS: LYRICA PO SCH ×2 (08:47→20:26)
[2017-08-16] MEDS: VICON-C PO SCH (08:47)
[2017-08-16] MEDS: LOVENOX SUBQ SCH (08:47)
[2017-08-16] MEDS: VITAMIN D PO SCH (08:48)
[2017-08-16] MEDS: LEVAQUIN PO SCH (08:48)
[2017-08-16] MEDS: VITAMIN B-1 PO SCH (08:48)
[2017-08-16] MEDS: NS 1,000 ML IV SCH ×3 (10:39→23:26)
--- NOTE | 2017-08-16 12:56 | PROGRESS NOTE ---
DATE: 08/16/2017 SUBJECTIVE: Patient doing about the same. He has had multiple bowel movements reported by the nursing staff. He is off Levophed at this time. OBJECTIVE: Vital Signs: Patient is currently afebrile. Most recent pulse 77, most recent blood pressure 100/59. O2 saturation 100%. Again Levophed is off. General: No acute distress. Cardiovascular: Regular rate and rhythm. Lungs: Grossly clear. Abdomen: Soft, nontender, nondistended. Sacral decubitus reviewed. Essentially unchanged from evaluation from Dr. Bowie on 08/15/2017. Stool is getting near the wound, when he has a bowel movement. LABORATORY: White blood cell count 11. Hematocrit is 36. ASSESSMENT/PLAN: A 72-year-old male, admitted for sepsis secondary to urinary tract infection now with infected decubitus wound: 1. Sacral wound. We will continue local wound care. There is a plan potentially for more debridement on Friday. We will have the patient NPO after midnight for Dr. Bowie to potentially do surgical intervention. Otherwise continue current treatment. 2. Multiple medical comorbidities. Currently being managed by the hospitalist service. Defer further management to them. cc: Humphrey Thomas MD
--- NOTE | 2017-08-16 18:12 | PROGRESS NOTE ---
DATE: 08/16/2017 SUBJECTIVE: Today Mr. Thao referred to be doing okay. Denies of any acute problem. Mr. Thao is tolerating his juice and some bites of food. OBJECTIVE: Vital signs: Blood pressure is 96/68, pulse is 74, respiration is 29, temperature is 97.6 degrees. General: Mr. Thao is a 72-year-old male. He is in bed. He is not in any distress. HEENT: Mucosa is pink, slightly dry, anicteric and acyanotic. Neck: Supple. Chest: Good air entry bilaterally. A few bibasilar crepitations. Cardiovascular: Regular rate and rhythm. There is no murmurs no rubs, no gallops. Abdomen: Soft. Bowel sounds are present. There is no hepatosplenomegaly. Extremities: No pedal edema. BRANCH SERVICES MANAGER: Patient is awake, alert, follows some basic commands. 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 The sacral wound I did not review that. However from the report surgery reviewed this morning the wound continues to have some purulence and then some purulent secretions and there is a plan for more debridement on Friday. CURRENT MEDICATIONS: Include: 1. Vitamin D. 2. Flexeril. 3. Levofloxacin 500 p.o. daily. 4. Lyrica 100 mg b.i.d. 5. Vitamin B 1 (150 mg daily). 6. Vitamin complex 1 tablet daily. ASSESSMENT: 1. Septic shock secondary to skin and soft tissue infection and urinary tract infection. Patient is currently off pressors. 2. Escherichia coli decubitus ulcer infection and also E. coli UTI. Patient has been on levofloxacin. The wound is also growing gram positive cocci. We are going to be waiting on the ID and sensitivity of that. White cell count continues to improve and patient is not in any fever so we will continue with the current antibiotics. 3. 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 We will continue with physical therapy. 4. Cervical stenosis with myelopathy status post cervical spine surgery. 5. Clinical dehydration. Improved. We will continue with the gentle hydration with saline at 85 mL/h. 6. Vitamin D deficiency. We will continue to supplement. 7. Possible left lower lobe infiltrate. Questionable for pneumonia. We will continue with the antibiotics. So far white cell count is improving. cc: Kartik James MD MTDD
[2017-08-16] MEDS: NORCO-10 PO PRN (20:37)
[2017-08-16] MEDS: FLEXERIL PO PRN (20:38)
[2017-08-17] MEDS: NORCO-10 PO PRN ×2 (05:13→20:07)
[2017-08-17 07:19] LABS: MANUAL DIFF NEEDED? NO
[2017-08-17 07:26] LABS: BASO% 0.1 % (0.0-0.8); EOS# 0.18 X1000 (0.0-0.7); EOS% 1.6 % (0.0-10.0); HEMATOCRIT 35.9 % (42.0-52.0); HEMOGLOBIN 11.3 g/dL (14.0-18.0); IMM GRAN# 0.02 X1000 (0.0-0.04); IMM GRAN% 0.2 % (0.0-0.5); LYMPH% 13.4 % (20.5-51.1); MCH 27.2 PG (27-31); MCHC 31.5 g/dL (33-37); MCV 86.3 FL (81-99); MONO# 0.97 X1000 (0.11-0.59); MONO% 8.7 % (1.7-9.3); PLT 258 X1000 (130-400); RBC 4.16 XMIL (4.7-6.1)
[2017-08-17 07:42] LABS: AGAP 7; BUN 12 mg/dL (8-22); CALCIUM 7.7 mg/dL (8.8-10.2); CHLORIDE 103 mmol/L (98-107); COSMO 281; POTASSIUM 3.6 mmol/L (3.5-5.1); SODIUM 141 mmol/L (136-145); TCO2 31 mmol/L (25-35)
[2017-08-17] MEDS: NS 1,000 ML IV SCH (08:34)
[2017-08-17] MEDS: VITAMIN B-1 PO SCH (08:34)
[2017-08-17] MEDS: LYRICA PO SCH ×2 (08:34→20:07)
[2017-08-17] MEDS: VITAMIN D PO SCH (08:34)
[2017-08-17] MEDS: LEVAQUIN PO SCH (08:34)
[2017-08-17] MEDS: VICON-C PO SCH (08:35)
[2017-08-17] MEDS: LOVENOX SUBQ SCH (08:35)
[2017-08-17] MEDS: FLEXERIL PO PRN (20:07)
--- NOTE | 2017-08-17 20:18 | PROGRESS NOTE ---
DATE: 08/17/2017 SUBJECTIVE: Today, Mr. Thao refers to be doing a lot better except that he did not like the lunch. OBJECTIVE: Vital signs: Blood pressure is 111/64, pulse is 75, respirations 15, temperature 97.2 degrees. General: Mr. Thao is a 72-year-old male. He was in bed. He was not in any distress. HEENT: Mucosa is pink and moist. Anicteric. Acyanotic. Neck: Supple. Chest: Good air entry bilaterally. A few bibasilar crepitations. Cardiovascular: Regular rate and rhythm. There are no murmurs, no rubs, no gallops. Abdomen: Soft, nontender. There is no hepatosplenomegaly. Extremities: No pedal edema. However, there is some swelling on the hips and the lateral aspect of the lower abdomen which I think he is probably retaining more fluid. FARM OR RANCH ANIMAL CARETAKER: Patient is awake and alert and oriented. He continues to have bilateral quadriparesis. The right upper extremity is a little better in terms of power than the rest. Integument: In terms of the sacral wound, I took a look at it this morning. It looks pretty clean. There is a lot of granulation tissue. However, there are areas of necrotic tissues as well, especially at the edges, which I understand will have debridement tomorrow. LABORATORY DATA: WBC is 11.2, platelet count of 258,000, hemoglobin and hematocrit is 11.3 and 35.9. Chemistry is reviewed. Completely normal. Calcium is 7.7. ASSESSMENT: 1. Septic shock, secondary to skin and soft tissue infection and urinary tract infection. Patient is on antibiotic. Currently off pressors. 2. Escherichia coli decubitus ulcer infection and Escherichia coli urinary tract infection. Patient is on levofloxacin. 3. 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 4. Cervical stenosis with myelopathy, status post cervical spine surgery. 5. Clinical dehydration. Patient is now I think very well repleted. We will therefore stop the fluids. 6. Vitamin D deficiency. We will continue to replace. 7. Questionable left middle lobe pneumonia. We will continue with the current antibiotics. PLAN: So today, I think Mr. Thao has significantly improved. We will going to continue with the current antibiotics. We will repeat his chest x-ray to follow up on the left middle lobe infiltrates tomorrow. We will discontinue the IV fluids and continue with his other medications. cc: Kartik James MD
[2017-08-18] MEDS: NORCO-10 PO PRN ×2 (04:23→21:13)
[2017-08-18 05:17] LABS: MANUAL DIFF NEEDED? NO
[2017-08-18 05:19] LABS: BASO% 0.2 % (0.0-0.8); EOS# 0.42 X1000 (0.0-0.7); EOS% 4.1 % (0.0-10.0); HEMATOCRIT 36.3 % (42.0-52.0); HEMOGLOBIN 11.4 g/dL (14.0-18.0); IMM GRAN# 0.02 X1000 (0.0-0.04); IMM GRAN% 0.2 % (0.0-0.5); LYMPH# 1.71 X1000 (1.2-3.4); LYMPH% 16.5 % (20.5-51.1); MCH 27.5 PG (27-31); MCHC 31.4 g/dL (33-37); MCV 87.5 FL (81-99); MONO# 0.85 X1000 (0.11-0.59); MONO% 8.2 % (1.7-9.3); NEUT% 70.8 % (42.2-75.2); PLT 283 X1000 (130-400); RBC 4.15 XMIL (4.7-6.1)
[2017-08-18 05:44] LABS: AGAP 4; BUN 9 mg/dL (8-22); CALCIUM 7.9 mg/dL (8.8-10.2); CHLORIDE 103 mmol/L (98-107); COSMO 280; POTASSIUM 3.7 mmol/L (3.5-5.1); SODIUM 141 mmol/L (136-145); TCO2 34 mmol/L (25-35)
[2017-08-18] MEDS: VICON-C PO SCH (09:19)
[2017-08-18] MEDS: VITAMIN D PO SCH (09:19)
[2017-08-18] MEDS: LOVENOX SUBQ SCH (09:19)
[2017-08-18] MEDS: VITAMIN B-1 PO SCH (09:19)
[2017-08-18] MEDS: LEVAQUIN PO SCH (09:19)
[2017-08-18] MEDS: LYRICA PO SCH ×2 (09:19→21:12)
--- NOTE | 2017-08-18 10:09 | PROGRESS NOTE ---
DATE: 08/18/2017 SUBJECTIVE: Feels okay. He has not been off Levophed over the weekend and was having generalized pain. No bowel movements overnight. Did have 1 during the day that nurses were able to easily take care of. OBJECTIVE: Vital Signs: No fevers. Pulse has been 80s to 90s on the last 2 checks. Blood pressure 120/76. Oxygen saturation 98% on 3 L. General: He is alert. Cardiovascular: Normal rate, regular rhythm. Pulmonary: No increased work of breathing but he is on nasal cannula. Skin: His sacral and left gluteal wound, there is some fibrinous tissue overlying the sacrum. The wound tunnels down his leg and medially but overall, it has got a beefy, healthy bleeding granulation tissue bed other than some focal areas of fibrinous tissue, a little bit of cloudy murky fluid from 1 of the tunneling tracts but overall, this is much improved. The surrounding cellulitis is improved. Laboratory Data: White count is down to 10, hematocrit is 36, platelets 283, 000. Creatinine 0.3. ASSESSMENT AND PLAN: A 72-year-old male with large sacral wound, status post excisional debridement. Wound cultures are growing out E. coli, enterococcus, and bacteroides. Dr. Stein is following for antibiotic recommendations. I think they are gradually improving. I have spoken with Idalmis, our wound nurse, and she is going to place a wound VAC today. He may need fecal diversion I think at this point, we can hold off on a colostomy as his bowel seemed to be maintained relatively infrequently and we will continue to follow along closely. Local wound care going forward. I think he needs further debridements that can be done at the bedside. We will use Santyl for enzymatic debridement. cc: Mary Bowie MD [facility]
--- NOTE | 2017-08-18 10:17 | PROGRESS NOTE ---
DATE: 08/18/2017 SUBJECTIVE: Today, Mr. Thao refers to be doing relatively fine. Denies of any complaint. Has been tolerating his diet. The patient was evaluated already by surgery, and they plan to kind of observe the wound for a day or two more before any further intervention. OBJECTIVE: Vitals: His blood pressure is 121/76, pulse is 92, respirations 28, temperature is 98.4 degrees. General: Mr. Thao is a 72-year-old male. He is in bed. He is not in any distress. HEENT: Mucosa is pink, moist. Anicteric. Acyanotic. Neck: Supple. There is no JVD. Chest: There is an old sternotomy scar on the anterior chest wall. Good air entry bilateral. There is no crepitations, no rhonchi. Cardiovascular: Regular rate and rhythm. Did not appreciate any murmurs or rubs. Abdomen: Soft, distended, but nontender. Bowel sounds were present. Extremities: No pedal edema. TRASH MAN: Patient is awake, alert. Executive functions are intact. However, he does have some quadriparesis. The right upper extremity is less affected than the right. LABORATORY DATA: WBC is down to 10.35, hemoglobin is 11.4, platelet count of 283,000. Chemistry is also reviewed. Sodium is 141, potassium is 3.7, chloride is 103, bicarb is 24. Microbiology data has also been reviewed. ASSESSMENT: 1. Septic shock on presentation, secondary to infected decubitus ulcer and urinary tract infection. Patient used to be on pressors, but he is currently off. Vitals are stable. We will continue with the current antibiotics. 2. Infected decubitus ulcer with Escherichia coli. Patient is status post debridement. Surgery is on board, and wound care is also on board. I understand that surgery evaluated the patient today, and they plan to observe the wound for a day or 2 more before any further surgical intervention. 3. Escherichia coli urinary tract infection. Patient is on adequate antibiotics. 4. 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 5. History of cervical stenosis with myelopathy status post cervical spine surgery. 6. Dehydration on presentation, improved. 7. Vitamin D deficiency. We will continue with replacement. So in general, Mr. Thao was admitted to the hospital on 08/12/2017, in septic shock. Admitted to the ICU. Needed pressor, had debridement of the wound by Dr. Bowie on 08/13/2017. Post surgically, he has been doing fine. He is currently hemodynamically stable. We are going to transfer him from the ICU to regular floor. We will continue with the Gr[place] catheter, so that it to give the wound some time to heal, and follow up with further surgery recommendations. The patient is being seen by ID and surgery. cc: Kartik James MD
[2017-08-18] MEDS ORDERED: MORPHINE IV PRN (15:38)
[2017-08-18] MEDS ORDERED: MORPHINE IV ONE (15:38)
--- NOTE | 2017-08-18 18:38 | PROGRESS NOTE ---
DATE: 08/18/2017 PRESENT ILLNESS: The patient has an E. coli urinary tract infection and E. coli enterococcus and Bacteroides. A sacral osteomyelitis, secondary to an infected sacral decubitus ulcer. The chest x-ray on the patient also showed a left-sided infiltrate. MEDICATIONS: As mentioned above, the patient is on Levaquin. PHYSICAL EXAMINATION: Vital Signs: Temperature is 97.6 degrees, pulse 85, respirations 18, blood pressure 140/82. General: This is an ill-appearing, elderly male who is in no acute distress. Lungs: Clear to auscultation. Cardiovascular: Regular heart rate. Abdomen: Soft and nontender. skin: I did not see the patient's sacral decubitus ulcer today. Dr. Bowie saw the wounds. His description, he said, in the sacral and left gluteal wound there is some fibrous tissue overlying the sacrum. The wound tunnels down his leg and medially, but overall it has got a beefy, healthy appearance, bleeding granulation tissue bed. There is surrounding cellulitis. There was a little bit of a cloudy-murky fluid from one of the tunneling tracks. LAB AND X-RAY: CBC-WBC 10.35, hgb 11.4, platelets 283K. Creatinine-0.3. GFR-> 60. Culture from decubitis ulcers growing E. coli, enterococcus and bacteroides. ASSESSMENT AND PLAN: I have discontinued the patient's Levaquin, and instead put him on Zosyn to cover all 3 of the organisms isolated from the sacral decubitus ulcer. Also, I am ordering a portable chest x-ray to see if the patient's infiltrate has cleared. The patient's comorbidities: 1. 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 2. He is also elderly. cc: Ricardo Stein MD [facility]
[2017-08-18] MEDS: ZOSYN 3.375 GM in NS 50 ML IV SCH (19:07)
[2017-08-18] MEDS ORDERED: NS 500 ML ONE (19:11)
[2017-08-18] MEDS: FLEXERIL PO PRN (21:18)
[2017-08-18] MEDS ORDERED: SANTYL OINT TOP ONE (22:06)
[2017-08-19] MEDS: ZOSYN 3.375 GM in NS 50 ML IV SCH ×4 (00:20→18:10)
[2017-08-19] MEDS: NORCO-10 PO PRN ×3 (04:08→21:50)
--- NOTE | 2017-08-19 07:40 | Diag Imaging Result Doc PS360 ---
CHEST-1 VIEW - 08/19/2017 INDICATION: pneumonia TECHNIQUE: COMPARISON: 08/15/2017 FINDINGS: There is worsening layering hazy opacification throughout the left hemithorax suggesting a pleural effusion. Lung volumes remain moderately low. Stable left basilar infiltrate. No definitely new infiltrates. Heart size remains enlarged. Stable left PICC line. IMPRESSION: Worsening density throughout the left hemithorax suggesting a pleural effusion. All other findings are stable from prior. Electronically signed by Trell Martinez 08/19/2017 7:37 AM
[2017-08-19] MEDS: VICON-C PO SCH (08:00)
[2017-08-19] MEDS: VITAMIN D PO SCH (08:00)
[2017-08-19] MEDS: LYRICA PO SCH ×2 (08:01→21:34)
[2017-08-19] MEDS: LOVENOX SUBQ SCH (08:01)
[2017-08-19] MEDS: VITAMIN B-1 PO SCH (08:01)
[2017-08-19] MEDS: FLEXERIL PO PRN ×2 (08:22→21:34)
--- NOTE | 2017-08-19 08:51 | PROGRESS NOTE ---
DATE: 08/19/2017 SUBJECTIVE: Feels okay. Moved to the floor. Had several bowel movements. Wound VAC was placed but apparently came off. OBJECTIVE: No fevers. Pulse in the 80s to 90s. Blood pressure 112/67, oxygen saturation 95% on 2 L.General: He is alert. He is sleeping but awoke this morning. Cardiovascular: Normal rate, regular rhythm. LABS: I reviewed his lab. White count down to 10 for yesterday. Hematocrit 36, creatinine 0.3. Multiple organisms grown out of his wound including Bacteroides and enterococcus E. coli. Dr. Stein is following. ASSESSMENT AND PLAN: Will continue to try the wound VAC treatment. I think that frequent stools is going to be an issue with his wound healing and dressing changes. I have discussed with the patient. He does not want to undergo colostomy at this point. We did discuss the possibility this would prohibit or delay his wound healing and he understands. Otherwise I think we have good control of his local infection here and he is clinically improving but I do think is going to be a difficult wound to heal long-term. cc: Mary Bowie MD
--- NOTE | 2017-08-19 15:36 | PROGRESS NOTE ---
DATE: 08/19/2017 PRESENT ILLNESS: The patient is being treated for an Escherichia coli urinary tract infection and an Escherichia coli, Enterococcus, and Bacteroides sacral decubitus wound infection including osteomyelitis of the sacrum. Patient also has a left-sided pulmonary infiltrate and pleural effusion. MEDICATIONS: The patient yesterday was switched to Zosyn; this is day 1 of treatment with it. PHYSICAL EXAMINATION: Vital Signs: Temperature is 97.8 degrees pulse 85, respirations 20, blood pressure 126/73. General: This is a fairly healthy-appearing, elderly male. He is in no acute distress at this time. Lungs: Clear to auscultation. Cardiovascular: Regular heart rate. Abdomen: Soft and nontender. Extremities: Patient has a PICC in his left arm. The site is not erythematous or swollen. LAB AND X-RAY: The patient's CBC today shows a white count of 10,350, hemoglobin 11.4 and platelet count 283,000. Creatinine is 0.3. GFR is greater than 60. Chest x-ray shows worsening of the left pleural effusion. ASSESSMENT AND PLAN: I plan to continue the patient's Zosyn treatment. Will need to see if the pleural fluid should be aspirated or even if a drain should be put in. 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 cc: Ricardo Stein MD
--- NOTE | 2017-08-19 16:36 | PROGRESS NOTE ---
DATE: 08/19/2017 SUBJECTIVE: The patient is resting comfortably in bed. He complains of generalized aches and pains, but otherwise feels okay today. OBJECTIVE: Vital Signs: Temperature 97.8, blood pressure 126/73, heart rate 85, respirations 20, O2 saturations 97% on 3 L nasal cannula. General: This is an elderly male, lying in bed, in no acute distress. Heart: S1, S2. Normal. Regular rate and rhythm. Lungs: Equal air entry bilaterally. No crackles, no rales. Abdomen: Positive bowel sounds. Soft, nontender, nondistended. Extremities: Trace pedal edema. No cyanosis. No calf tenderness. Neurologic: The patient is alert and oriented x3. The patient does have lower extremity paralysis. LABS: White blood cell count 10, hemoglobin 11, hematocrit 36, platelets 283. Sodium 141, potassium 3.7, chloride 103, CO2 of 34, BUN 9, creatinine 0.3, glucose 92. ASSESSMENT AND PLAN: 1. Osteomyelitis of the sacrum with polymicrobial decubitus wound infection. Continue on the current IV antibiotic regimen as directed by Dr. Ricardo Stein. 2. Urinary tract infection secondary to E. coli. Continue on antibiotic therapy. 3. Guillain-[place] with quadriparesis. Aware. 4. Vitamin D deficiency. Continue on vitamin D replacement. 5. Septic shock. Resolved. 6. Deep vein thrombosis prophylaxis. Continue on Lovenox. cc: Amanda Short MD
[2017-08-19] MEDS: CULTURELLE PO SCH (21:34)
[2017-08-20] MEDS: ZOSYN 3.375 GM in NS 50 ML IV SCH ×4 (01:56→21:15)
[2017-08-20] MEDS: NORCO-10 PO PRN ×4 (02:51→21:15)
[2017-08-20 06:03] LABS: MANUAL DIFF NEEDED? NO
[2017-08-20 06:10] LABS: BASO% 0.2 % (0.0-0.8); EOS# 0.31 X1000 (0.0-0.7); EOS% 2.8 % (0.0-10.0); HEMOGLOBIN 11.9 g/dL (14.0-18.0); IMM GRAN# 0.03 X1000 (0.0-0.04); IMM GRAN% 0.3 % (0.0-0.5); LYMPH# 1.78 X1000 (1.2-3.4); MCH 27.7 PG (27-31); MCHC 31.3 g/dL (33-37); MCV 88.4 FL (81-99); MONO# 0.94 X1000 (0.11-0.59); MONO% 8.4 % (1.7-9.3); MPV 9.8 FL (7.4-10.4); NEUT% 72.3 % (42.2-75.2); PLT 320 X1000 (130-400)
[2017-08-20 06:29] LABS: AGAP 5; BUN 5 mg/dL (8-22); CHLORIDE 98 mmol/L (98-107); COSMO 274; MAGNESIUM 1.5 mg/dL (1.5-2.7); POTASSIUM 3.6 mmol/L (3.5-5.1); SODIUM 139 mmol/L (136-145); TCO2 36 mmol/L (25-35)
[2017-08-20] MEDS ORDERED: MAGNESIUM SULFATE 2 GM/S.W.I. 2 GM/50 ML IVPB IV ONE (07:23)
[2017-08-20] MEDS: CULTURELLE PO SCH ×3 (07:54→21:15)
[2017-08-20] MEDS: VICON-C PO SCH ×2 (07:54→12:20)
[2017-08-20] MEDS: LYRICA PO SCH ×3 (07:54→21:15)
[2017-08-20] MEDS: LOVENOX SUBQ SCH (07:54)
[2017-08-20] MEDS: VITAMIN D PO SCH ×2 (07:55→12:20)
[2017-08-20] MEDS: VITAMIN B-1 PO SCH ×2 (07:55→12:20)
[2017-08-20] MEDS: MORPHINE IV PRN (10:41)
--- NOTE | 2017-08-20 12:08 | PROGRESS NOTE ---
DATE: 08/20/2017 SUBJECTIVE: Wet-to-dry dressings are going okay, trouble with a wound VAC. Keeping a seal. OBJECTIVE: Vital signs: No fevers. No tachycardia. Pulse in the 80s this afternoon. Blood pressure 159/86. General: He is alert, no acute distress. Skin: The sacral wound is granulating well. There is fibrous tissue in the bed. Overall this seems to be improving with enzymatic debridement. LABORATORY DATA: White count down to 11, hematocrit 38. Creatinine 0.3. ASSESSMENT AND PLAN: A 72-year-old male with large gluteal sacral wound. We will attempt to replace the wound VAC today with Santyl with these dressing changes for enzymatic debridement. We will continue to follow and monitor. The purulence overall is improving. I do not see any progression of necrosis and clinically, he is improving. Nutrition is going to be an issue, offloading, and local wound care and debridement. He has voiced his wishes to not have a colostomy numerous times, and I think ultimately this is what he needs to the facilitate wound healing and divert fecal stream, but he does not want to pursue this. cc: Mary Bowie MD
[2017-08-20] MEDS: SANTYL OINT TOP SCH (12:20)
--- NOTE | 2017-08-20 15:50 | PROGRESS NOTE ---
DATE: 08/19/2017 PRESENT ILLNESS: The patient is being treated for an E. Coli urinary tract infection and an E. Coli, enterococcal and Bacteroides sacral decubitus wound infection, with osteomyelitis of the sacrum. The patient also has a left-sided pulmonary infiltrate and pleural effusion. MEDICATIONS: The patient is been on Zosyn now for 2 days. PHYSICAL EXAMINATION: Vital Signs: Temperature is 98.1 degrees, pulse 89, respirations 16, blood pressure 132/78. general: Generally, this is an obese, elderly male who is in no acute distress. Lungs: Clear to auscultation. Cardiovascular: Heart rate is regular. Abdomen: Soft and nontender. Extremities: The patient has a PICC in his left arm. The site is not erythematous or swollen. LABORATORY AND X-RAY: The CBC today showed a white count of 11,130, hemoglobin 11.9, and platelet count 320,000. Creatinine is 0.3, GFR is greater than 60. ASSESSMENT AND PLAN: Regarding the patient's urinary tract infection and sacral osteomyelitis, I plan to continue Zosyn. The urinary tract infection will require only a 2-week treatment course. I plan to treat the sacral osteomyelitis for 6 weeks. I have ordered a CT scan of the chest to determine how much of a pleural effusion there is, and also if the patient still has an infiltrate suggestive of pneumonia. The patient's comorbidities include severe Guillain-[place] syndrome and the patient is elderly. cc: Ricardo Stein MD
--- NOTE | 2017-08-20 15:59 | Diag Imaging Result Doc PS360 ---
EXAM: CT THORAX W/O CONTRAST HISTORY: L pleural effusion TECHNIQUE: CT chest without contrast. Dose reduction protocol. COMPARISON: None. FINDINGS: There is a small left-sided pleural effusion measuring 2.8 cm posteriorly and inferiorly in the midline. There is a smaller right-sided pleural effusion measuring 1.8 cm. The heart is mildly enlarged. Prominent coronary artery calcifications. Sternal wires are present. There is central vascular distention. There are several calcified left hilar lymph nodes with scattered granuloma. There is a left-sided PICC line. No pneumothorax. There is bilateral basilar atelectasis. There could be tiny underlying infiltrates in the lung bases. IMPRESSION: 1.Small bilateral pleural effusions with basilar atelectasis 2.Cardiomegaly with coronary artery calcifications and central vascular distention Electronically signed by Yan Moreno 08/20/2017 3:57 PM
--- NOTE | 2017-08-20 18:52 | PROGRESS NOTE ---
DATE: 08/20/2017 SUBJECTIVE: The patient is resting comfortably in bed. He has no complaints at this time. OBJECTIVE: Vital Signs: Temperature 98.3 degrees, blood pressure 142/76, heart rate 86, respirations 22, O2 saturations 98% on 3 L nasal cannula. General: This is a chronically ill- appearing, elderly male, lying in bed. Heart: S1, S2 normal. Regular rate and rhythm. Lungs: Clear to auscultation bilaterally. No crackles. No rales. Abdomen: Positive bowel sounds. Soft, nontender, nondistended. Extremities: No edema. No cyanosis. Neurologic: The patient is a quadriplegic. He is awake and oriented x 4. LABS: White blood cell count 11, hemoglobin 11, hematocrit 38, platelets 320,000. Sodium 139, potassium 3.6, chloride 98, CO2 36, BUN 5, creatinine 0.3, glucose 91, calcium 8, magnesium 1.5. ASSESSMENT AND PLAN: 1. Osteomyelitis of the sacrum with a polymicrobial decubitus wound infection. Continue with IV antibiotic therapy. 2. Urinary tract infection secondary to Escherichia coli. Continue on antibiotic therapy. 3. Small bilateral pleural effusions. Stable. 4. Guillain [place] with quadriparesis. Aware. 5. Vitamin D deficiency. Continue on vitamin D replacement. 6. Leukocytosis. Slowly improving. Continue with antibiotic therapy. 7. Hypomagnesemia. Will replace the patient's magnesium. 8. Septic shock. Resolved. 9. Deep vein thrombosis prophylaxis. Continue with Lovenox. cc: Amanda Short MD
[2017-08-20] MEDS: FLEXERIL PO PRN (21:24)
[2017-08-21] MEDS: ZOSYN 3.375 GM in NS 50 ML IV SCH ×4 (01:37→22:37)
[2017-08-21] MEDS: NORCO-10 PO PRN ×4 (02:46→22:38)
[2017-08-21 06:36] LABS: MANUAL DIFF NEEDED? NO
[2017-08-21] MEDS: FLEXERIL PO PRN ×3 (06:57→22:37)
[2017-08-21 06:59] LABS: BASO% 0.1 % (0.0-0.8); EOS# 0.16 X1000 (0.0-0.7); EOS% 1.7 % (0.0-10.0); HEMATOCRIT 36.9 % (42.0-52.0); HEMOGLOBIN 11.5 g/dL (14.0-18.0); IMM GRAN# 0.03 X1000 (0.0-0.04); IMM GRAN% 0.3 % (0.0-0.5); LYMPH# 1.65 X1000 (1.2-3.4); LYMPH% 17.4 % (20.5-51.1); MCH 27.6 PG (27-31); MCHC 31.2 g/dL (33-37); MCV 88.7 FL (81-99); MONO# 0.75 X1000 (0.11-0.59); MONO% 7.9 % (1.7-9.3); NEUT% 72.6 % (42.2-75.2); PLT 312 X1000 (130-400); RBC 4.16 XMIL (4.7-6.1)
[2017-08-21 07:05] LABS: AGAP 7; BUN 6 mg/dL (8-22); CHLORIDE 94 mmol/L (98-107); COSMO 278; POTASSIUM 3.5 mmol/L (3.5-5.1); SODIUM 141 mmol/L (136-145); TCO2 40 mmol/L (25-35)
[2017-08-21 07:16] LABS: MAGNESIUM 1.7 mg/dL (1.5-2.7)
[2017-08-21] MEDS ORDERED: MAGNESIUM SULFATE 2 GM/S.W.I. 2 GM/50 ML IVPB IV ONE (07:17)
[2017-08-21] MEDS: VITAMIN B-1 PO SCH (08:35)
[2017-08-21] MEDS: VICON-C PO SCH (08:36)
[2017-08-21] MEDS: LOVENOX SUBQ SCH (08:36)
[2017-08-21] MEDS: CULTURELLE PO SCH ×2 (08:36→22:37)
[2017-08-21] MEDS: VITAMIN D PO SCH (08:41)
[2017-08-21] MEDS: LYRICA PO SCH ×2 (08:41→22:38)
--- NOTE | 2017-08-21 09:25 | PROGRESS NOTE ---
DATE: 08/21/2017 PRESENT ILLNESS: The patient is receiving antimicrobial therapy for an Escherichia coli urinary tract infection and an Escherichia coli, enterococcal, and Bacteroides sacral decubitus wound infection with osteomyelitis of the sacrum. The patient was being treated for a left-sided pulmonary infiltrate and pleural effusion. MEDICATIONS: The patient has been on Zosyn now for 3 days. PHYSICAL EXAMINATION: Vital Signs: Temperature is 97.7 degrees, respirations 18, blood pressure 134/80. General: This is an Ill-appearing elderly male. He is in no acute distress. He has very severe Guillain-[place] syndrome. Lungs: Clear to auscultation. Cardiovascular: Regular heart rate. Abdomen: Soft and nontender. Extremities: The patient's arms and legs are edematous. Neurologic: Patient is very weak in all four of his limbs. LAB AND X-RAY: CT scan of the chest showed a small left-sided pleural effusion and a smaller right-sided pleural effusion. Heart is mildly enlarged. There is prominent coronary artery calcification. There is some central vascular distention. There is bilateral basilar atelectasis. There could be tiny infiltrates in the lung bases. ASSESSMENT AND PLAN: I think our main thing we are treating is his infected sacral decubitus ulcer with osteomyelitis. I think his pulmonary infection has cleared or is clearing almost to the point of being completely gone. COMORBIDITY: The patient's comorbidity is that he has got very severe Guillain-[place] syndrome. He also is elderly. cc: Ricardo Stein MD
[2017-08-21] MEDS: MORPHINE IV PRN ×2 (11:24→15:50)
[2017-08-21] MEDS: SANTYL OINT TOP SCH (14:54)
--- NOTE | 2017-08-21 20:39 | PROGRESS NOTE ---
DATE: 08/21/2017 SUBJECTIVE: The patient is resting comfortably in bed. He has no complaints. No acute events noted overnight. The patient is afebrile. OBJECTIVE: Vital Signs: Temperature 97.5 degrees, blood pressure 126/76, heart rate 84, respirations 18, O2 saturations 96% on 2 L nasal cannula. General: This is an elderly male, lying in bed, in no acute distress. Heart: S1, S2. Normal. Regular rate and rhythm. Lungs: Clear to auscultation bilaterally. No wheezing. No rales. No rhonchi. Abdomen: Positive bowel sounds. Soft, nontender, nondistended. Extremities: Trace pedal edema. No cyanosis. No calf tenderness. Neurologic: The patient is a quadriplegic. LABORATORIES: White blood cell count 9.4, hemoglobin 11, hematocrit 36, platelets 312,000. Sodium 141, potassium 3.5, chloride 94, CO2 40, BUN 6, creatinine 0.3, glucose 87, magnesium 1.7, phosphorus 3.1. ASSESSMENT AND PLAN: 1. Osteomyelitis of the sacrum with a polymicrobial decubitus wound infection. Continue with IV antibiotic therapy. Continue with wound care as directed by Dr. Bowie. 2. Urinary tract infection secondary to E. coli. Continue with antibiotic therapy. 3. Pneumonia. Improved. The patient remains on antibiotic therapy. 4. Small bilateral pleural effusions. Stable. 5. Guillain-[place] with quadriparesis. Aware. 6. Vitamin D deficiency. Continue vitamin D replacement. 7. Leukocytosis. Resolved. 8. Septic shock. Resolved. 9. Deep vein thrombosis prophylaxis. Continue on Lovenox. 10. Disposition. The patient is interested in LTAC placement. I have discussed this with high school social science teacher and they have sent out referrals for placement. cc: Amanda Short MD [facility]
[2017-08-22] MEDS: ZOSYN 3.375 GM in NS 50 ML IV SCH ×5 (03:50→22:53)
[2017-08-22] MEDS: NORCO-10 PO PRN ×3 (04:07→20:26)
[2017-08-22 05:47] LABS: MANUAL DIFF NEEDED? NO
[2017-08-22 05:54] LABS: BASO% 0.2 % (0.0-0.8); EOS# 0.08 X1000 (0.0-0.7); EOS% 0.8 % (0.0-10.0); HEMATOCRIT 38.2 % (42.0-52.0); HEMOGLOBIN 11.8 g/dL (14.0-18.0); LYMPH# 1.79 X1000 (1.2-3.4); MCH 27.4 PG (27-31); MCHC 30.9 g/dL (33-37); MCV 88.8 FL (81-99); MONO# 0.71 X1000 (0.11-0.59); MONO% 7.5 % (1.7-9.3); MPV 9.8 FL (7.4-10.4); NEUT% 72.5 % (42.2-75.2); PLT 331 X1000 (130-400)
[2017-08-22] MEDS: MORPHINE IV PRN ×2 (06:05→10:35)
[2017-08-22 06:11] LABS: AGAP 6; BUN 8 mg/dL (8-22); CALCIUM 8.3 mg/dL (8.8-10.2); CHLORIDE 96 mmol/L (98-107); COSMO 281; POTASSIUM 3.8 mmol/L (3.5-5.1); SODIUM 142 mmol/L (136-145); TCO2 40 mmol/L (25-35)
[2017-08-22 06:18] LABS: MAGNESIUM 1.9 mg/dL (1.5-2.7)
--- NOTE | 2017-08-22 07:53 | PROGRESS NOTE ---
DATE: 08/22/2017 PRESENT ILLNESS: The patient has had debridement of a sacral buttock decubitus ulcer which extends to the sacrum. Therefore, the patient has the infected decubitus ulcer and osteomyelitis. The patient also was treated for a left-sided infiltrate and pleural effusion. MEDICATIONS: The patient has been on Zosyn now for 4 days. PHYSICAL EXAMINATION: Vital signs: Temperature is 98, pulse 80, respirations 20, blood pressure 130/80. General: This is a chronically ill-appearing elderly male who is in no acute distress. Lungs: Clear to auscultation. Cardiovascular: Regular heart rate. Abdomen: Soft and nontender. The patient's sacral decubitus wound has a VAC on it. LAB AND X-RAY: CBC-WBC 9.42, hgb 11.8, platelets 331K. Creatinine-0.3. GFR->60. Radiology-none for today. ASSESSMENT AND PLAN: The patient has a sacral decubitus ulcer with osteomyelitis and possibly pneumonia. The plan is to continue his antibiotics. Today his VAC on the sacral decubitus ulcer is going to be removed. I have requested that the wound nurse page me so I can see the wound at that time. Also will repeat the patient's chest x-ray and lab work after this weekend finishes on August 25. COMORBIDITY: The patient's comorbidity is he has very severe Guillain-[place] syndrome to the point that he is bedridden and, therefore, very likely to develop decubitus ulcers especially on the sacral area where his is now. cc: Ricardo Stein MD [facility]
[2017-08-22] MEDS: LOVENOX SUBQ SCH (09:01)
[2017-08-22] MEDS: VITAMIN D PO SCH (09:02)
[2017-08-22] MEDS: VICON-C PO SCH (09:02)
[2017-08-22] MEDS: LYRICA PO SCH ×2 (09:02→20:26)
[2017-08-22] MEDS: VITAMIN B-1 PO SCH (09:02)
[2017-08-22] MEDS: CULTURELLE PO SCH ×2 (09:03→20:26)
[2017-08-22] MEDS: SANTYL OINT TOP SCH (10:12)
--- NOTE | 2017-08-22 17:18 | PROGRESS NOTE ---
DATE: 08/22/2017 SUBJECTIVE: This morning, Mr. Thao refers to be doing fine. Denies of any acute changes. He said both ID and wound care nurse took a look at his wound today and they told him that everything is looking much better. OBJECTIVE: Vital signs: Blood pressure is 146/78, pulse of 75, respiration is 17, temperature 97.9 degrees. General: Mr. Thao is a 72-year-old male. He is in bed, not in any remarkable distress. HEENT: Mucosa is pink and moist. Anicteric. Acyanotic. Neck: Supple. Chest: Clear. Cardiovascular: Regular rate and rhythm. There is no murmurs no rubs, no gallops. Abdomen: Soft. Extremities: No pedal edema. SLUICE TENDER: Patient is awake and alert. Oriented x4. The patient continues to have quadriparesis. LABORATORY DATA: WBC is 9.42, hemoglobin is 11.8, platelet count of 331,000. Chemistry is also reviewed and unremarkable except for bicarb of 40. ASSESSMENT: 1. Septic shock on presentation. Improved. 2. Escherichia coli infected decubitus ulcer status post incision and drainage. 3. Sacral osteomyelitis. 4. Escherichia coli urinary tract infection. 5. 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 6. Cervical stenosis with myelopathy status post cervical spine surgery. 7. Vitamin D deficiency. We will continue to replace that. So in general I think Mr. Thao is doing a lot better. We will continue with the current antibiotics. The wound seems to be doing fine. The wound VAC has been removed today and wound has been evaluated by both ID and wound care nurse. The patient is obviously going to be needing IV antibiotics for an extended period of time, probably about 6 weeks because of the bony involvement. We will however defer that recommendation to the ID specialist on board. But if the patient is going to be needing a long-term IV antibiotic then it would be reasonable to start thinking about LTAC or somewhere that he will be able to be transitioned to for said therapy. We will make this decision on Friday and then go from there. cc: Kartik James MD
[2017-08-22] MEDS: FLEXERIL PO PRN (20:26)
--- NOTE | 2017-08-22 20:49 | PROGRESS NOTE ---
DATE: 08/22/2017 SUBJECTIVE: Feels okay just diffuse pain. Wound VAC was placed yesterday. Apparently the wound is cleaning up nicely per the wound nurse, I was unable to see it before the VAC was placed and it is holding good suction. OBJECTIVE: No fevers. Pulses was 79 this morning, blood pressure 123/86, O2 saturation 100% on room air. General. He is alert lying flat on his back in bed. He does have some bumps underneath him and his vacuum is to -125 suction. ASSESSMENT/PLAN: Will continue current antibiotics per Dr. Stein. Will continue wound VAC changes. Patient did not want undergo fecal diversion with colostomy. I think it is unlikely this wound will ever heal significantly given his multiple comorbidities especially if do not divert his fecal stream although we seem to have it excluded pretty well with a wound VAC both myself and Idalmis our wound nurse have had the discussion with patient and he understands. Will continue to monitor. cc: Mary Bowie MD
[2017-08-23] MEDS: NORCO-10 PO PRN ×4 (03:04→22:25)
[2017-08-23] MEDS: ZOSYN 3.375 GM in NS 50 ML IV SCH ×4 (03:05→22:26)
[2017-08-23] MEDS: CULTURELLE PO SCH ×2 (10:23→22:25)
[2017-08-23] MEDS: LOVENOX SUBQ SCH (10:23)
[2017-08-23] MEDS: VICON-C PO SCH (10:23)
[2017-08-23] MEDS: VITAMIN D PO SCH (10:24)
[2017-08-23] MEDS: VITAMIN B-1 PO SCH (10:24)
[2017-08-23] MEDS: FLEXERIL PO PRN ×2 (10:39→16:42)
[2017-08-23] MEDS: LYRICA PO SCH ×2 (10:39→22:25)
[2017-08-23] MEDS: SANTYL OINT TOP SCH (11:43)
[2017-08-23] MEDS: MORPHINE IV PRN ×2 (11:53→16:42)
--- NOTE | 2017-08-23 15:21 | PROGRESS NOTE ---
DATE: 08/23/2017 SUBJECTIVE: This morning Mr. Thao refers to be doing relatively fine. There is no any acute changes. OBJECTIVE: Vital signs: Blood pressure is 141/93, pulse of 82, respiration is 20, temperature 98.4 degrees. General: Mr. Thao is a 72-year-old male. He is in bed, not in any distress. HEENT: Mucosa is pink and moist. Anicteric. Acyanotic. Neck: Supple. Chest: Clear. Cardiovascular: Regular rate and rhythm. No murmurs, no rubs, no gallops. Abdomen: Soft, nontender. No hepatosplenomegaly. Extremities: No pedal edema. NEW PATIENT ESCORT: Patient is awake, alert, follows commands. Has quadriparesis. Patient also has a wound VAC currently in place. LABORATORY DATA: None for today. ASSESSMENT: 1. Septic shock on presentation improved. 2. Escherichia coli infected decubitus ulcer status post incision and drainage currently has wound vacuum-assisted closure in place. 3. Sacral osteomyelitis. Will continue with the current antibiotics. 4. Escherichia coli urinary tract infection. 5. Vitamin D deficiency. Will continue to replace. 6. 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 7. Cervical stenosis with myelopathy status post cervical spine surgery. So today Mr. Thao continues to relatively stable, we are going to continue with the current medications including the antibiotics. Will be pending final recommendations from surgery hopefully on Friday to know if patient will be needing any more surgical intervention from the wound. terrazzo worker is also looking into patient going into an LTAC to continue with IV antibiotics and wound care. cc: Kartik James MD
[2017-08-24] MEDS: NORCO-10 PO PRN ×4 (05:09→21:35)
[2017-08-24] MEDS: FLEXERIL PO PRN ×3 (05:10→21:34)
[2017-08-24] MEDS: ZOSYN 3.375 GM in NS 50 ML IV SCH ×4 (05:10→21:36)
[2017-08-24] MEDS: LOVENOX SUBQ SCH (09:23)
[2017-08-24] MEDS: LYRICA PO SCH ×2 (09:23→21:34)
[2017-08-24] MEDS: CULTURELLE PO SCH ×2 (09:24→21:34)
[2017-08-24] MEDS: VICON-C PO SCH (09:25)
[2017-08-24] MEDS: VITAMIN B-1 PO SCH (09:25)
[2017-08-24] MEDS: VITAMIN D PO SCH (09:25)
--- NOTE | 2017-08-24 10:15 | Diag Imaging Result Doc PS360 ---
EXAM: CHEST-1 VIEW INDICATION: pneumonia TECHNIQUE: One view COMPARISON: 08/19/2017 FINDINGS: The left PICC line is in stable position. The patient is rotated toward the right. The diffuse groundglass opacity throughout the left lung is stable. No new consolidation is appreciated. Cardiac silhouette is stable. IMPRESSION: Stable chest. Electronically signed by Timothy Dwyer 08/24/2017 10:13 AM
[2017-08-24] MEDS: SANTYL OINT TOP SCH (12:37)
[2017-08-24] MEDS ORDERED: VANCOMYCIN IV PER PHARMACY MISC SCH (14:30)
[2017-08-24] MEDS ORDERED: VANCOMYCIN 2,500 MG in NS 500 ML IV ONE (15:00)
--- NOTE | 2017-08-24 15:13 | PROGRESS NOTE ---
DATE: 08/24/2017 SUBJECTIVE: Overall, feels okay. He does have some bloating in his abdomen, but he is having bowel movements, but not too frequently. OBJECTIVE: Vital signs: No fevers. Pulse has been 82, blood pressure 139/92, oxygen saturation 97% on 2 L nasal cannula. General: He is alert. Abdomen: Soft, mildly distended and not tympanitic. Wound VAC in place, -125 suction. LABORATORIES: No new labs this morning. ASSESSMENT AND PLAN: A 72-year-old male with large decubitus wound and other medial issues. I think we have good source control. He has got a wound VAC that is holding suction and, for the most part, his fecal contamination is under control. Will examine his wound tomorrow and make further disposition at this time, as he is due a wound VAC change at that point. Otherwise, no systemic signs of undrained or managed infection. Discussed plan with the patient, and he understands. cc: Mary Bowie MD
--- NOTE | 2017-08-24 15:49 | PROGRESS NOTE ---
DATE: 08/24/2017 SUBJECTIVE: This patient states that he is doing relatively fine. No acute changes, no acute distress. I received a call from the nurse, and this patient now has a sacral ulcer that is infected, positive for MRSA. I have placed this patient on vancomycin. OBJECTIVE: Vital Signs: Temperature 97.8 degrees, pulse 77, respiratory rate 18, blood pressure 142/109, O2 saturation 97% on 2 L of nasal cannula. HEENT: Normocephalic. No trauma. PERRLA. Neck: Supple. No JVD. No masses. Central trachea. Chest: Clear to auscultation. No wheezing. No rales. Abdomen: Soft, nontender, nondistended. No hepatosplenomegaly. Extremities: No edema. No clubbing. No cyanosis. Neurological: The patient is alert and oriented x3. He follows commands. He has a quadriparesis. LABORATORY: No lab work done today. ASSESSMENT AND PLAN: 1. Septic shock on presentation, improved. 2. Escherichia coli infected decubitus ulcer, status post incision and drainage. Apparently, he has also sacral osteomyelitis, now having a positive culture for methicillin-resistant Staphylococcus aureus. I have placed this patient on vancomycin. 3. Escherichia coli urinary tract infection. Continue same management. 4. Vitamin D deficiency. Will continue to replace. 5. 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 Aware. 6. Cervical stenosis with myelopathy, status post cervical spine surgery. Aware. Now this patient has a back ulcer that is positive for methicillin-resistant Staphylococcus aureus. I have placed this patient on vancomycin. Infectious disease department following this patient closely. We will continue following their recommendations. cc: Garry Carrion MD
[2017-08-25] MEDS: ZOSYN 3.375 GM in NS 50 ML IV SCH ×4 (04:07→20:31)
[2017-08-25 06:01] LABS: MANUAL DIFF NEEDED? NO
[2017-08-25 06:06] LABS: BASO% 0.2 % (0.0-0.8); EOS# 0.09 X1000 (0.0-0.7); EOS% 0.7 % (0.0-10.0); HEMATOCRIT 37.9 % (42.0-52.0); HEMOGLOBIN 11.6 g/dL (14.0-18.0); IMM GRAN# 0.02 X1000 (0.0-0.04); IMM GRAN% 0.2 % (0.0-0.5); LYMPH# 1.69 X1000 (1.2-3.4); LYMPH% 13.9 % (20.5-51.1); MCH 27.1 PG (27-31); MCHC 30.6 g/dL (33-37); MCV 88.6 FL (81-99); MONO# 0.95 X1000 (0.11-0.59); MONO% 7.8 % (1.7-9.3); MPV 10.2 FL (7.4-10.4); NEUT% 77.2 % (42.2-75.2); PLT 337 X1000 (130-400); RBC 4.28 XMIL (4.7-6.1)
[2017-08-25 06:18] LABS: AGAP 8; BUN 9 mg/dL (8-22); CALCIUM 8.3 mg/dL (8.8-10.2); CHLORIDE 95 mmol/L (98-107); COSMO 274; SODIUM 138 mmol/L (136-145); TCO2 35 mmol/L (25-35)
[2017-08-25] MEDS: NORCO-10 PO PRN ×2 (08:23→20:52)
[2017-08-25] MEDS: LYRICA PO SCH ×2 (08:23→20:31)
[2017-08-25] MEDS: VITAMIN B-1 PO SCH (08:24)
[2017-08-25] MEDS: CULTURELLE PO SCH ×2 (08:24→20:31)
[2017-08-25] MEDS: VITAMIN D PO SCH (08:24)
[2017-08-25] MEDS: VICON-C PO SCH (08:24)
[2017-08-25] MEDS: SANTYL OINT TOP SCH (08:25)
[2017-08-25] MEDS: LOVENOX SUBQ SCH (08:25)
[2017-08-25] MEDS ORDERED: MORPHINE IV PRN (13:26)
--- NOTE | 2017-08-25 15:09 | PROGRESS NOTE ---
DATE: 08/25/2017 PRESENT ILLNESS: The patient has a sacral decubitus ulcer to include osteomyelitis. He also had possible pulmonary infiltrates suggestive of pneumonia. MEDICATIONS: The patient has been on Zosyn now for 7 days and vancomycin for 1 day. PHYSICAL EXAMINATION: Vital Signs: Temperature is 99.7 degrees, pulse 92, respirations 18, blood pressure 138/92. General: This is a chronically ill-appearing, elderly male. He is in no acute distress. Lungs: Clear to auscultation. Cardiovascular: Regular heart rate. Abdomen: Soft and nontender. The patient's sacral decubitus has a VAC on it. Later today hopefully the VAC will be changed so I can see the wound itself. LAB AND X-RAY: There are no new radiographic studies. CBC shows a white count of 12,160, hemoglobin 11.6, and platelet count 337,000. Creatinine is 0.4. ASSESSMENT AND PLAN: The patient has a sacral decubitus ulcer with osteomyelitis and possible pneumonia. I plan to continue his current antibiotics. Dr. Bowie is managing the local wound care of the patient. 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 Also, I am concerned that he may be aspirating. cc: Ricardo Stein MD
--- NOTE | 2017-08-25 16:10 | PROGRESS NOTE ---
DATE: 08/25/2017 SUBJECTIVE: Overall doing okay. VAC change is going alright. OBJECTIVE: Vital signs: No fevers. Pulse has been in the 90s, blood pressure 130/69, oxygen saturation 98% on 2 L. General: He is alert, in no acute distress. Extremities: His wound overall is granulating okay. There is some fibrinous tissue in the bed, but this seems to be loosening. There is an area of tunneling that goes down the gluteal muscle towards the leg and one more centrally. There is some purulence draining out of this, but I do not see any necrosis and this all communicates to one large cavity. No evidence of undrained collection. This does extend to the lateral rectal wall for quite some distance, but I do not feel any defect here in the rectum. LABORATORY: White count 12, hematocrit 37, creatinine 0.4. ASSESSMENT/PLAN: A 72-year-old male with multiple medical issues, large perirectal gluteal decubitus wound. VAC changes are going okay. We will continue current. He is going to need enrichment assistant antibiotics. I do not think that there is any role for surgical debridement at this point. We are using Santyl for enzymatic debridement, and I do not see any evidence of undrained collections and overall is afebrile with a slight uptake in his white count, but it has been normal for several days. We will continue to monitor for now. He is going to need long-term likely LTAC for ongoing wound care. He has refused colostomy. We will continue monitor. Dr. Stein is following from Infectious Disease standpoint. No plans for further surgical intervention. cc: Mary Bowie MD
--- NOTE | 2017-08-25 16:11 | PROGRESS NOTE ---
DATE: 08/25/2017 SUBJECTIVE: The patient has no focal complaints. OBJECTIVE: Vital signs: Blood pressure 130/69, heart rate of 87, respiratory rate of 19, temperature degrees 98.2, 98% on 2 L. Cardiovascular: Regular rate and rhythm. Pulmonary: Bilateral breath sounds. Clear to auscultation. Gastrointestinal: Soft, nontender, nondistended. Bowel sounds are positive. LABORATORY DATA: White count 12, hemoglobin and hematocrit are 11 and 37, platelets 337,000. Basic was normal. Micro from August 22 showed MRSA, from August 13 showed bacteroides thetaiotaomicron. He has had enterococcus E. coli. PROBLEM LIST: 1. Infected decubitus ulcer. We will continue empiric antibiotics. He has been on Zosyn, day 7, and vancomycin, day 2, for osteomyelitis. He does have a PICC line. I think the plan is long- term IV therapy for 4 to 6 weeks. 2. Guillain-[place] syndrome. Obviously, we will continue his supportive treatment. 3. Septic shock. That also seems to be stable. DISPOSITION: I think we are looking for LTAC placement for him, when stable, and looks like that is being pursued. cc: Lee Rush MD
[2017-08-25] MEDS: VANCOMYCIN 2,000 MG in NS 500 ML IV SCH (16:36)
[2017-08-25] MEDS: FLEXERIL PO PRN (20:52)
[2017-08-26] MEDS: ZOSYN 3.375 GM in NS 50 ML IV SCH ×5 (01:00→21:52)
--- NOTE | 2017-08-26 03:19 | PROGRESS NOTE ---
DATE: 08/25/2017 ADDENDUM REPORT The VAC has been removed. The wound does tunnel deep including to the sacrum, but the tissue, most all of it looks like it is beefy red in color. There was not an odor to it, and I did not see any necrotic tissue. cc: Ricardo Stein MD
[2017-08-26 06:29] LABS: HEMATOCRIT 35.4 % (42.0-52.0); HEMOGLOBIN 10.9 g/dL (14.0-18.0); MCH 28.1 PG (27-31); MCHC 30.8 g/dL (33-37); MCV 91.2 FL (81-99); RBC 3.88 XMIL (4.7-6.1)
[2017-08-26 06:46] LABS: AGAP 5; BUN 9 mg/dL (8-22); CALCIUM 8.3 mg/dL (8.8-10.2); CHLORIDE 99 mmol/L (98-107); COSMO 276; SODIUM 139 mmol/L (136-145); TCO2 35 mmol/L (25-35)
[2017-08-26] MEDS: VITAMIN B-1 PO SCH (10:28)
[2017-08-26] MEDS: LOVENOX SUBQ SCH (10:28)
[2017-08-26] MEDS: VITAMIN D PO SCH (10:29)
[2017-08-26] MEDS: VICON-C PO SCH (10:29)
[2017-08-26] MEDS: LYRICA PO SCH ×2 (10:29→21:07)
[2017-08-26] MEDS: CULTURELLE PO SCH ×2 (10:29→21:07)
[2017-08-26] MEDS: SANTYL OINT TOP SCH (10:44)
[2017-08-26] MEDS: NORCO-10 PO PRN ×2 (12:02→21:14)
--- NOTE | 2017-08-26 15:22 | PROGRESS NOTE ---
DATE: 08/26/2017 SUBJECTIVE: This patient has no complaints today. He has been having some mild lower extremity edema that has been chronic, and he is concerned about this. He has a sacral decubitus ulcer and osteomyelitis that is positive for MRSA. This patient is on vancomycin and infectious disease department is following this patient closely. He has a wound VAC. OBJECTIVE: Vital Signs: Temperature 97.6 degrees, pulse 86, respiratory rate 18, blood pressure 120/69, oxygen saturation 98% on room air. HEENT: Head normocephalic. No trauma. PERRLA. Neck: Supple. No JVD. No masses. Central trachea. Chest: Clear to auscultation. No wheezing. No rales. Abdomen: Soft, nontender, nondistended. No hepatosplenomegaly. Extremities: There is 1+ lower extremity edema. No clubbing. No cyanosis. Neurological: The patient is alert and oriented x3. He follows commands. He has quadriparesis. LABORATORY: WBC 8.5, hemoglobin 10.9, hematocrit 35.4, platelets 291,000. Sodium 139, potassium 4, chloride 99, bicarbonate 35, BUN 9, creatinine 0.3, glucose 87, calcium 8.3. ASSESSMENT AND PLAN: 1. Septic shock on presentation, improved. 2. Escherichia coli infected decubitus ulcer, with also methicillin-resistant Staphylococcus aureus infection, status post I D. Probably also, this patient has osteomyelitis. Infectious disease department following this patient. Continue with the same antibiotics. 3. Escherichia coli urinary tract infection. Continue the same management. 4. Vitamin D deficiency. We will continue to replace. 5. 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 Aware. 6. Cervical stenosis with myelopathy, status post cervical spine surgery. Aware. cc: Garry Carrion MD
[2017-08-26] MEDS: VANCOMYCIN 2,000 MG in NS 500 ML IV SCH (17:39)
[2017-08-26] MEDS: FLEXERIL PO PRN (21:14)
[2017-08-27] MEDS: ZOSYN 3.375 GM in NS 50 ML IV SCH ×4 (04:03→22:31)
[2017-08-27] MEDS: NORCO-10 PO PRN ×3 (07:31→20:09)
[2017-08-27] MEDS: CULTURELLE PO SCH ×2 (09:04→20:09)
[2017-08-27] MEDS: VICON-C PO SCH (09:04)
[2017-08-27] MEDS: VITAMIN D PO SCH (09:04)
[2017-08-27] MEDS: VITAMIN B-1 PO SCH (09:04)
[2017-08-27] MEDS: LYRICA PO SCH ×2 (09:04→20:09)
[2017-08-27] MEDS: LOVENOX SUBQ SCH (09:05)
--- NOTE | 2017-08-27 12:43 | PROGRESS NOTE ---
DATE: 08/27/2017 SUBJECTIVE: This patient has a history of Guillain-[place] with quadriparesis and, apparently, he has been having loose bowel movements throughout the night, at least 10. I will ask for Clostridium difficile antigen and toxin. Infectious Disease Department is also following this patient. He has a sacral decubitus ulcer and osteomyelitis that is positive for methicillin- resistant Staphylococcus aureus. OBJECTIVE: Vital Signs: Temperature 98.1 degrees, pulse 86, respiratory rate 18, blood pressure 137/81, oxygen saturation 100% on 2 L of nasal cannula. HEENT: Head normocephalic. No trauma. PERRLA. Neck supple. No JVD. No masses. Central trachea. Chest clear to auscultation. No wheezing. No rales. Abdomen is soft, mild tenderness to palpation at the level of the lower abdomen. Positive bowel sounds. No rebound. Extremities: 1+ lower extremity edema. No clubbing. No cyanosis. Neurologic: The patient is alert and oriented x3. He follows commands. He has quadriparesis. LABORATORY: WBC 8.5, hemoglobin 10.9, hematocrit 35.4, platelets 291,000, sodium 139, potassium 4, chloride 99, bicarbonate 35. BUN 9, creatinine 0.3, glucose 87, calcium 8.3. ASSESSMENT AND PLAN: 1. Septic shock on presentation, improved. 2. Escherichia coli and Methicillin-resistant Staphylococcus aureus infected decubitus ulcer, status post incision and drainage. Also, this patient presents with osteomyelitis. Infectious Disease is following this patient closely. Continue with the same treatment. 3. Acute diarrhea. We will ask for Clostridium difficile toxin and antigen. We will continue to monitor. 4. Escherichia coli urinary tract infection: Continue with the same management. 5. Vitamin D deficiency. Continue to replace. 6. 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 7. Cervical stenosis with myelopathy, status post cervical spine surgery, aware. cc: Garry Carrion MD
[2017-08-27] MEDS: SANTYL OINT TOP SCH (13:39)
--- NOTE | 2017-08-27 14:39 | PROGRESS NOTE ---
DATE: 08/27/2017 ADDENDUM REPORT: Based the data that my nurse practitioner, Charlee Davidson, accumulated and based on my physical exam I have formulated a treatment for the patient's decubitus ulcer with osteomyelitis and pneumonia. This is being dictated right now by my nurse practitioner. Also, I discussed with the patient long-term treatment. He told me that he will be going to an LTAC to complete his 6 weeks of treatment because he has sacral osteomyelitis and after that he wanted to go to a retirement and have his who also is ill to live in an assisted living facility associated with the retirement. cc: Ricardo Stein MD MTDD
--- NOTE | 2017-08-27 14:45 | PROGRESS NOTE ---
DATE: 08/27/2017 PRESENT ILLNESS: The patient has a MRSA infected sacral decubitus ulcer with osteomyelitis. He has no x-rays today but previous infiltrates are suggestive of pneumonia. MEDICATIONS: Mr. Thao has been on Zosyn now for 9 days and vancomycin for 3 days. We started him on Vancomycin 250mg p.o. today for positive Clostridium difficile antigen and toxin. PHYSICAL EXAMINATION: Vital Signs: Temperature of 98.1 degrees, heart rate 86 , respiratory rate 18, blood pressure 137/81. General: This is a chronically ill-appearing, elderly male, lying in bed, in some pain with recent clean up from liquid bowel movement. Lungs: Clear to auscultation bilaterally. Respirations are even and nonlabored. Cardiovascular: Heart rate is regular. Pedal and radial pulses are palpable bilaterally. Abdomen: Soft and very tender. Diarrhea has been going on all night per nursing report. He has a wound VAC to his sacral decubitus in place with bloody drainage in the tubing. He is awake, alert, and oriented with minimal abilities for movement due to Guillain-[place]. LABORATORY AND X-RAY: White count yesterday is 8.55, hemoglobin is 10.9, platelet count of 291,000. Creatinine is 0.3, GFR is greater than 60. We have no blood work for today or x-rays but will recheck CBC, BMP tomorrow as well as a chest x-ray. ASSESSMENT AND PLAN: The patient has a sacral decubitus with osteomyelitis and infiltrates suggestive of pneumonia. We plan to continue antibiotics as currently prescribed, Zosyn and vancomycin. Due to positive toxin and antigen for Clostridium difficile will start patient on 14 day course of vancomycin 250 mg p.o. every 6 hours. We will recheck blood work and chest x-ray in a.m. These plans have been discussed with and recommended by Dr. Stein. COMORBIDITIES: Severe Guillain-[place] syndrome which has caused him to be bed ridden and we are concerned that he may have issues with aspiration in the future. We will continue to monitor with chest xray. Dictated by CASANDRA Lewis for Ricardo Stein MD cc: CASANDRA Lewis MD [facility]
[2017-08-27] MEDS: VANCOMYCIN 1.5 GM in NS 250 ML IV SCH (18:00)
[2017-08-27] MEDS: FLEXERIL PO PRN (20:09)
[2017-08-27] MEDS: VANCOCIN PO SCH (22:30)
[2017-08-28] MEDS: ZOSYN 3.375 GM in NS 50 ML IV SCH ×4 (03:56→22:08)
[2017-08-28] MEDS: VANCOCIN PO SCH ×3 (03:59→19:58)
[2017-08-28] MEDS: VANCOMYCIN 1.5 GM in NS 250 ML IV SCH ×2 (03:59→17:22)
--- NOTE | 2017-08-28 06:30 | Diag Imaging Result Doc PS360 ---
EXAM: CHEST-PORTABLE HISTORY: pneumonia TECHNIQUE: Portable AP COMPARISON: 08/24/2017 FINDINGS: The left-sided PICC line is in good position. Sternal wires are present and the heart isn't enlarged. Poor inspiratory effort. The pulmonary vessels are not distended. No pleural effusions identified. There has been prior surgery to the lower neck. IMPRESSION: Cardiomegaly, but no pneumonia. Electronically signed by Yan Moreno 08/28/2017 6:28 AM
[2017-08-28 07:09] LABS: MANUAL DIFF NEEDED? NO
[2017-08-28 07:18] LABS: BASO% 0.5 % (0.0-0.8); HEMATOCRIT 38.2 % (42.0-52.0); HEMOGLOBIN 11.9 g/dL (14.0-18.0); IMM GRAN# 0.02 X1000 (0.0-0.04); IMM GRAN% 0.2 % (0.0-0.5); LYMPH# 1.31 X1000 (1.2-3.4); LYMPH% 13.1 % (20.5-51.1); MCH 27.9 PG (27-31); MCHC 31.2 g/dL (33-37); MCV 89.5 FL (81-99); MONO# 0.81 X1000 (0.11-0.59); MONO% 8.1 % (1.7-9.3); MPV 10.5 FL (7.4-10.4); NEUT% 78.1 % (42.2-75.2); PLT 327 X1000 (130-400); RBC 4.27 XMIL (4.7-6.1)
[2017-08-28 07:47] LABS: AGAP 8; BUN 12 mg/dL (8-22); CALCIUM 8.6 mg/dL (8.8-10.2); CHLORIDE 96 mmol/L (98-107); COSMO 275; POTASSIUM 4.3 mmol/L (3.5-5.1); SODIUM 138 mmol/L (136-145); TCO2 34 mmol/L (25-35)
[2017-08-28] MEDS: NORCO-10 PO PRN ×2 (07:55→18:48)
[2017-08-28] MEDS: VITAMIN D PO SCH (09:01)
[2017-08-28] MEDS: CULTURELLE PO SCH ×2 (09:01→19:59)
[2017-08-28] MEDS: LYRICA PO SCH ×2 (09:01→19:59)
[2017-08-28] MEDS: VICON-C PO SCH (09:01)
[2017-08-28] MEDS: LOVENOX SUBQ SCH (09:02)
[2017-08-28] MEDS: SANTYL OINT TOP SCH (09:04)
[2017-08-28] MEDS: VITAMIN B-1 PO SCH (09:04)
--- NOTE | 2017-08-28 14:11 | PROGRESS NOTE ---
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 He started having loose bowel movements the day before yesterday and during the night and we asked for C. difficile toxin and antigen which showed that he has C. difficile colitis. Dr. Stein from Infectious Disease Department has been following this patient, he has been started on treatment for the C. difficile colitis. OBJECTIVE: Vital Signs: Temperature 97.9 degrees, pulse 93, respiratory rate 20, blood pressure 152/88, oxygen saturation 98 on room air. HEENT: Normocephalic. No trauma. PERRLA. Neck: Supple. No JVD. No masses. Central trachea. Chest: Clear to auscultation. No wheezing. No rales. Abdomen: Soft. Mild tenderness to palpation at the level of the lower abdomen. Positive bowel sounds. No rebound. Extremities: 2+ lower extremity edema. No clubbing. No cyanosis. Neurological: The patient is alert and oriented x3. He has acquired quadriparesis and he is following commands. LABORATORY: WBC 10, hemoglobin 11.9, hematocrit 38.2, platelets 327,000. Sodium 138, potassium 4.3, chloride 96, bicarbonate 34, BUN 12, creatinine 0.6, glucose 87, calcium 8.6. ASSESSMENT AND PLAN: 1. Septic shock on presentation. Improved. 2. Clostridium difficile colitis, Infectious Disease Department taking care of this patient. We will continue to follow their recommendations. 3. Escherichia coli and MRSA infected decubitus ulcer sacral area status post incision and drainage. Also this patient presents with osteomyelitis. Infectious Disease Department is following this patient closely. Continue with antibiotics. 4. Acute diarrhea. Like I mentioned before, he has Clostridium difficile colitis that has been already under treatment. 5. Escherichia coli urinary tract infection. Continue with the same management. 6. Vitamin D deficiency. Continue to replace. 7. 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 Aware. 8. Cervical stenosis with myelopathy status post cervical spine surgery. Aware. cc: Garry Carrion MD
[2017-08-28] MEDS: FLEXERIL PO PRN (19:58)
[2017-08-29] MEDS: NORCO-10 PO PRN (00:45)
[2017-08-29] MEDS: VANCOCIN PO SCH ×2 (01:06→09:06)
[2017-08-29] MEDS: ZOSYN 3.375 GM in NS 50 ML IV SCH ×2 (04:00→09:07)
[2017-08-29] MEDS: VANCOMYCIN 1.5 GM in NS 250 ML IV SCH (04:50)
[2017-08-29 06:37] LABS: MANUAL DIFF NEEDED? NO
[2017-08-29 06:46] LABS: BASO% 0.5 % (0.0-0.8); EOS# 0.34 X1000 (0.0-0.7); EOS% 3.4 % (0.0-10.0); HEMATOCRIT 36.5 % (42.0-52.0); HEMOGLOBIN 11.2 g/dL (14.0-18.0); IMM GRAN# 0.02 X1000 (0.0-0.04); IMM GRAN% 0.2 % (0.0-0.5); LYMPH# 1.28 X1000 (1.2-3.4); LYMPH% 12.9 % (20.5-51.1); MCH 27.5 PG (27-31); MCHC 30.7 g/dL (33-37); MCV 89.5 FL (81-99); MONO# 0.72 X1000 (0.11-0.59); MONO% 7.3 % (1.7-9.3); MPV 10.6 FL (7.4-10.4); NEUT% 75.7 % (42.2-75.2); PLT 329 X1000 (130-400); RBC 4.08 XMIL (4.7-6.1)
[2017-08-29 07:02] LABS: AGAP 10; BUN 17 mg/dL (8-22); CALCIUM 8.8 mg/dL (8.8-10.2); CHLORIDE 97 mmol/L (98-107); COSMO 277; POTASSIUM 4.1 mmol/L (3.5-5.1); SODIUM 138 mmol/L (136-145); TCO2 31 mmol/L (25-35)
[2017-08-29 08:10] VITALS: BP 136/86
[2017-08-29] MEDS: VICON-C PO SCH (09:05)
[2017-08-29] MEDS: VITAMIN B-1 PO SCH (09:05)
[2017-08-29] MEDS: CULTURELLE PO SCH (09:05)
[2017-08-29] MEDS: VITAMIN D PO SCH (09:06)
[2017-08-29] MEDS: LYRICA PO SCH (09:06)
[2017-08-29] MEDS: LOVENOX SUBQ SCH (09:06)
[2017-08-29] MEDS: SANTYL OINT TOP SCH (09:33)
--- NOTE | 2017-08-29 11:05 | DISCHARGE SUMMARY ---
ADMISSION DATE: 08/12/2017 DISCHARGE DATE: 08/29/2017 CONSULTATIONS: Dr. Jone Bowie with General Surgery. Dr. Ricardo Stein with Infectious Disease. PERTINENT PROCEDURES: 1. Excisional debridement of sacral wound in the left gluteal wound 12 x 9 cm x 11 cm deep down to the level of the bone and up to the perirectal fat by Dr. Jone Bowie. 2. Chest CT showed small bilateral pleural effusion with basilar atelectasis, cardiomegaly with coronary artery calcification with central venous distention. 3. Normal chest x-ray on 08/28, showed cardiomegaly but no pneumonia, and a left-sided PICC line in good position. 4. Placed a wound VAC on 08/18/2017. DISCHARGE DIAGNOSES: 1. Septic shock on presentation, improved. 2. Clostridium difficile colitis being treated by Infectious Disease. 3. Escherichia coli and methicillin-resistant Staphylococcus aureus infected decubitus ulcer of the sacral area, status post incision and debridement with drainage. Also presented with osteomyelitis. The patient does have a wound VAC, followed by General Surgery. The patient adamantly refuses to undergo a fecal diversion with a colostomy, and he will need to be on long-term antibiotics and continue with the wound VAC. circulation worker will have LTAC wound nurse contact Annamarie for detailed information about the patient's wound and its care. There were also detailed written orders on the pink sheet that will be going with the patient. He is to be discharged to LTAC in a.m. 4. Escherichia coli urinary tract infection. Continue with left ventricular antibiotics. 5. Vitamin D deficiency. Continue with supplementation. 6. History of Guillain [place] with chronic quadriparesis, aware. 7. Cervix cervical stenosis with status post cervical spine surgery, aware. 8. Clinical dehydration, improved. 9. Left-sided pneumonia, resolved. HOSPITAL COURSE: Briefly, Mr. Thao is a 72-year-old male with a history of coronary artery disease status post CABG recently diagnosed with Guillain [place] in December 2016, spinal stenosis, status post cervical surgery in April 2017. The patient has been progressively getting weaker. He is now bound since April 2017. He has a home health agency and had been checking on him. According to the patient, he has been progressively weaker, no energy, no appetite for one week. Home health came to check on his wounds. Because of how they looked, they called his PCP, Dr. Romero, who recommended him to come to the ED for evaluation. Upon presentation, he was found to have a temperature 100.3 degrees, blood pressures were low at 97/41. Lab work done showed a WBC of 16. Chest x-ray was negative. The patient was initially admitted to sepsis secondary to skin and soft tissue infection of his sacral decubitus ulcer. He was aggressively hydrated and started on broad-spectrum antibiotics. Consulted general surgery for debridement. Mr. Thao had to be moved to the ICU. He needed pressors. He had his debridement done by Dr. Bowie on 08/13/2017. Postsurgical, he has done fine. He has had regular dressing changes. He has been hemodynamically stable. They did apply a wound VAC. He was transferred out of the ICU to the regular floor. They kept his [place] catheter in place to give his wound some time to heal. Dr. Bowie as well the wound care nurse, Annamarie, did discuss doing a colostomy to divert feces. However, the patient has voiced his wishes not to have a colostomy numerous times, and they were going to attempt to continue with wound VAC changes, broad-spectrum antibiotics, and Santyl with the dressing changes for enzymatic debridement, and to continue with the nutrition and offloading. Dr. Ricardo Stein was brought on board for IV antibiotics. He did grow out MRSA E coli UTI as well as E coli in his wound, and osteomyelitis and subsequently, developed C difficile colitis, that still being treated by Dr. Stein. Given the fact that Mr. Thao will need to have long-term antibiotics and will need to have long-term wound care with the wound VAC, they felt LTAC was the most appropriate place. Again, he has refused colostomy. Surgery has no plans for any further surgical intervention. Computer Customer Support Specialist was involved. He has been accepted to [facility], and will be discharged there tomorrow morning. Will continue on IV antibiotics with Dr. Stein and continue wound care. DISCHARGE DIET: Healthy heart with Boost with each meal and liposeal protein. DISCHARGE MEDICATIONS: As per Dr. Stein and Dr. Childs. Please see MAR. FOLLOWUP: Mr. Thao will be discharged to [facility] on 08/29/2017. He will follow up with Dr. Stein as well as Dr. Bowie, as they have indicated; and he can return to see his PCP, Dr. Kesha Romero, after he gets out of LTAC. He can return to the ED for any worsening of symptoms. DISCHARGED HOME: 35 minutes. Dictated by CASANDRA Serrano for Garry Carrion MD cc: MD Kesha De Anda MD
--- NOTE | 2017-09-01 03:31 | DISCHARGE SUMMARY ---
ADMISSION DATE: 08/12/2017 DISCHARGE DATE: 08/29/2017 ADDENDUM: Patient seen and evaluated by me [id number]. He has no specific complaints today. No changes on my physical exam. All the lab work and vital signs have been stable. I had a conversation with Dr. Stein from Infectious Disease Department and he wants to continue he is oral vancomycin, IV vancomycin, and Zosyn for 4-1/2 weeks because of his sacral osteomyelitis. He will be discharged to [facility] in [place]. They will continue with antibiotics, wound care, and physical therapy. Because of his primary condition, Guillain-[place], he probably will end up coming again to the hospital for other issues or worsening of his ulcer. I agree with the rest of the assessment and plan. cc: Garry Carrion MD
== END 2017-08-29 13:44 ==
LOC: ED 15:59 → EDIPHOLD 20:01 → SUATTDRO 20:01 → ICU 08-13 08:34 → 4N 08-18 14:00 → 3N 08-24 14:17
PROVIDERS: ATTEND Internal Medicine